=== PATIENT | female | born 1955 | race Caucasian/White ===

== ENCOUNTER 2017-04-06 20:14 | Emergency (ER) | payer MEDICARE, MEDICAID ==
[~2017-04-06] VITALS: Ht 165.1 cm; Wt 107.9 kg
[2017-04-06 20:16] VITALS: BP 145/80; PULSE 90; RESP 16; TEMP 97.8; O2SAT 97
[2017-04-06] MEDS ORDERED: FLUT1SPR5 EACH NARE (20:34)
[2017-04-06] MEDS ORDERED: LOSA50TA PO (20:34)
[2017-04-06] MEDS ORDERED: ALPR.5 PO (20:34)
[2017-04-06] MEDS ORDERED: MERC50TA PO (20:34)
[2017-04-06] MEDS ORDERED: OLAN10TA PO (20:34)
[2017-04-06] MEDS ORDERED: VENL75XR PO (20:34)
[2017-04-06] MEDS ORDERED: APRI0.372 PO (20:34)
[2017-04-06] MEDS ORDERED: UMEC1INH INH (20:34)
[2017-04-06] MEDS ORDERED: FLUT1INH INH (20:34)
[2017-04-06] MEDS ORDERED: MECL-62 PO (20:34)
[2017-04-06] MEDS ORDERED: IBUP-1129 (20:34)
[2017-04-06] MEDS ORDERED: CETI10CA3 (20:34)
[2017-04-06] MEDS ORDERED: OMEP40CA2 PO (20:34)
[2017-04-06] MEDS ORDERED: CALC1TAB87 PO (20:34)
[2017-04-06] MEDS ORDERED: GABA300C5 PO (20:34)
[2017-04-06] MEDS ORDERED: HYDR25TA5 PO (20:34)
[2017-04-06] MEDS ORDERED: BACIOIN6 LEFT EYE (21:25)
--- NOTE | 2017-04-06 21:25 | PD ---
HPI Chief Complaint: Eye Problems/Injury Time Seen by Provider: 21:17 Travel History International Travel<30 days: No Contact w/Intl Traveler<30days: No Traveled to known affect area: No History of Present Illness HPI Patient is a 62-year-old female presenting to the emergency department for evaluation of left eye tearing, crusting, redness. Patient states the symptoms started Wednesday when she felt as if she had an eyelash in her eye. She reports flushing her eye but since that time she has continued to have symptoms. She denies any contact lens use. She denies any visual changes. She states the pain is a 3 out of 10 and reports it is irritated. There are no alleviating factors, it is not exacerbated by anything. Additionally patient states that she's had nasal congestion for several days as well, but denies any fevers, chills, headache, cough.. Patient reports an allergy to erythromycin. PFSH Past Medical History Asthma: Yes Autoimmune Disease: Yes (CHRON'S ) Bipolar Disorder: Yes Anxiety: Yes Depression: Yes GERD: Yes Hypertension: Yes Medical other: Yes (MANIC DEPRESSION ) Tetanus Vaccination: > 5 Years Social History Alcohol Use: Yes (RARELY ) Tobacco Use: Yes Substance Use: No Allergies-Medications (Allergen,Severity, Reaction): Coded Allergies: erythromycin base (Verified Allergy, Severe, 04/06/17) Reported Meds & Prescriptions Reported Meds & Active Scripts Active Reported Motrin Ib (Ibuprofen) 200 Mg Tablet 400 BID Calcium 600 with Vitamin D (Calcium Carbonate-Cholecalciferol) 600-400 mg-Unit Tab 1 Tab PO DAILY Zyrtec (Cetirizine HCl) 10 Mg Capsule Breo Ellipta Inh (Fluticasone/Vilanterol) 100-25 Mcg/Act Inh 1 Puff INH DAILY Use daily at the same time. Incruse Ellipta Inh (Umeclidinium [place] Inh) 0.0625 Mg/Act Inh 62.5 Mcg INH DAILY Flonase Nasal [place] (Fluticasone Nasal [place]) 50 Mcg/Act [place] 50 Mcg EACH NARE BID Losartan (Losartan Potassium) 50 Mg Tab 50 Mg PO DAILY Mercaptopurine 50 Mg Tab 50 Mg PO DAILY Omeprazole 40 Mg Cap 40 Mg PO DAILY Hydrochlorothiazide 25 Mg Tab 25 Mg PO DAILY Gabapentin 300 Mg Cap 300 Mg PO BID Apriso (Mesalamine) 0.375 Gm Caper 1.5 Gm PO DAILY Meclizine (Meclizine HCl) 25 Mg Tab 25 Mg PO DIRECTED PRN Xanax (Alprazolam) 0.5 Mg Tab 0.5 Mg PO BID PRN Olanzapine 10 Mg Tab 10 Mg PO DAILY Effexor XR 24 HR (Venlafaxine HCl) 75 Mg Cap 75 Mg PO DAILY Review of Systems Except as stated in HPI: all other systems reviewed are Neg Eyes: Positive: Drainage, Redness, Tearing, No: Blurred Vision, Foreign Body Sensation, Visual changes Physical Exam Narrative GENERAL: Well-developed, well-nourished, alert female. Resting comfortably in no acute distress. SKIN: Warm and dry. HEAD: Normocephalic. EYES: No scleral icterus. Mild injection to the inner aspect of the left eye with clear drainage. Extraocular movements are intact. Pupils are equal, round , reactive. Fluorescein eye exam was negative for abrasions, lesions, foreign body. NECK: Supple, trachea midline. No JVD or lymphadenopathy. CARDIOVASCULAR: Regular rate and rhythm without murmurs, gallops, or rubs. RESPIRATORY: Breath sounds equal bilaterally. No accessory muscle use. GASTROINTESTINAL: Abdomen soft, non-tender, nondistended. MUSCULOSKELETAL: No cyanosis, or edema. BACK: Nontender without obvious deformity. No CVA tenderness. Data Data Last Documented VS Vital Signs Date Time Temp Pulse Resp B/P (MAP) Pulse Ox O2 Delivery O2 Flow Rate FiO2 04/06/17 20:16 97.8 90 16 145/80 (101) 97 Room Air [facility] Medical Decision Making Medical Screen Exam Complete: Yes Emergency Medical Condition: Yes Interpretation(s) Vital Signs Date Time Temp Pulse Resp B/P (MAP) Pulse Ox O2 Delivery O2 Flow Rate FiO2 04/06/17 20:16 97.8 90 16 145/80 (101) 97 Room Air Differential Diagnosis Conjunctivitis versus foreign body versus corneal abrasion versus other Narrative Course Patient presented with 2 days of left eye tearing, crusting, redness. No foreign body noted on exam, no abrasions or lesions. There is mild induration to the inner aspect. Patient has been having upper respiratory symptoms, this is likely viral in nature however patient will be provided with a prescription for bacitracin ointment to help lubricate the eye. She was encouraged to apply warm compresses. She was encouraged to follow-up with an verify rep as needed or she can return to emergency department for any new or worsening symptoms. Patient verbalized understanding of these instructions. Patient is stable for discharge. Diagnosis Primary Impression: Conjunctivitis Qualified Codes: H10.32 - Unspecified acute conjunctivitis, left eye Referrals: Redrying Machine Operator 3 days Patient Instructions: Conjunctivitis (ED), General Instructions Additional Instructions: Maintain strict hand washing to avoid spread Use medications as directed Follow-up with her verify rep if no improvement You may also return to emergency department for any new or worsening symptoms Med/Other Pt SpecificInfo: Prescription(s) given Scripts Bacitracin Opth Oint (Bacitracin Opth Oint) 500 Unit/Gm Oint 1 APPLIC LEFT EYE Q4HR for Infection for 7 Days, #1 TUBE 0 Refills Prov: Mar Gu 04/06/17 Disposition: 01 DISCHARGE HOME Condition: Stable Mar Gu Apr 06, 2017 21:25
== END 2017-04-06 22:06 | disposition home or self-care (01) ==
LOC: NEPK 20:14
DX: H10.32 Unspecified acute conjunctivitis, left eye (principal); I10 Essential (primary) hypertension; F31.9 Bipolar disorder, unspecified; Z72.0 Tobacco use
CPT/HCPCS: 99283

== ENCOUNTER 2017-04-16 14:34 | Emergency (ER) | payer MEDICARE, MEDICAID ==
[~2017-04-16] VITALS: Ht 165.1 cm; Wt 107.0 kg
[~2017-04-16 14:34] MED LIST: ALPR.5 PO; APRI0.372 PO; BACIOIN6 LEFT EYE; CALC1TAB87 PO; CETI10CA3; FLUT1INH INH; FLUT1SPR5 EACH NARE; GABA300C5 PO; HYDR25TA5 PO; IBUP-1129; LOSA50TA PO; MECL-62 PO; MERC50TA PO; OLAN10TA PO; OMEP40CA2 PO; UMEC1INH INH; VENL75XR PO
[2017-04-16 14:37] VITALS: BP 136/70; PULSE 96; RESP 13; TEMP 98.7; O2SAT 97
[2017-04-16] MEDS ORDERED: IBUP-232 PO (15:28)
--- NOTE | 2017-04-16 15:28 | PD ---
HPI Chief Complaint: Injury Time Seen by Provider: 15:17 Travel History International Travel<30 days: No Contact w/Intl Traveler<30days: No Traveled to known affect area: No History of Present Illness HPI 62-year-old female presents to emergency Department with complaint of right ankle pain and swelling since Wednesday after rolling her ankle while walking down stairs. She denies falling. Pain radiates up her leg. Denies calf pain. Denies paresthesias, loss of sensation, decreased range of motion, decreased strength to the affected extremity. Has been ambulatory on the affected extremity. Been taking ibuprofen for symptom management. Rates pain 01/28. Describes it as a throbbing, aching, stabbing sensation. Pain is to the lateral and medial aspect of the ankle. Pain is aggravated with ambulation, palpation, movement. Allergies to erythromycin base. Has no other medical complaints. No other modifying factors or associated signs and symptoms. PFSH Past Medical History Asthma: Yes Autoimmune Disease: Yes (CHRON'S ) Bipolar Disorder: Yes Anxiety: Yes Depression: Yes Diabetes: Yes GERD: Yes Hypertension: Yes Social History Alcohol Use: Yes (RARELY ) Tobacco Use: Yes Substance Use: No Allergies-Medications (Allergen,Severity, Reaction): Coded Allergies: erythromycin base (Verified Allergy, Severe, 04/16/17) Reported Meds & Prescriptions Reported Meds & Active Scripts Active Ibuprofen 600 Mg Tab 600 Mg PO Q6H PRN Bacitracin Opth Oint 500 Unit/Gm Oint 1 Applic LEFT EYE Q4HR 7 Days Reported Motrin Ib (Ibuprofen) 200 Mg Tablet 400 BID Calcium 600 with Vitamin D (Calcium Carbonate-Cholecalciferol) 600-400 mg-Unit Tab 1 Tab PO DAILY Zyrtec (Cetirizine HCl) 10 Mg Capsule Breo Ellipta Inh (Fluticasone/Vilanterol) 100-25 Mcg/Act Inh 1 Puff INH DAILY Use daily at the same time. Incruse Ellipta Inh (Umeclidinium [place] Inh) 0.0625 Mg/Act Inh 62.5 Mcg INH DAILY Flonase Nasal [place] (Fluticasone Nasal [place]) 50 Mcg/Act [place] 50 Mcg EACH NARE BID Losartan (Losartan Potassium) 50 Mg Tab 50 Mg PO DAILY Mercaptopurine 50 Mg Tab 50 Mg PO DAILY Omeprazole 40 Mg Cap 40 Mg PO DAILY Hydrochlorothiazide 25 Mg Tab 25 Mg PO DAILY Gabapentin 300 Mg Cap 300 Mg PO BID Apriso (Mesalamine) 0.375 Gm Caper 1.5 Gm PO DAILY Meclizine (Meclizine HCl) 25 Mg Tab 25 Mg PO DIRECTED PRN Xanax (Alprazolam) 0.5 Mg Tab 0.5 Mg PO BID PRN Olanzapine 10 Mg Tab 10 Mg PO DAILY Effexor XR 24 HR (Venlafaxine HCl) 75 Mg Cap 75 Mg PO DAILY Review of Systems Except as stated in HPI: all other systems reviewed are Neg Physical Exam Narrative GENERAL: Well-nourished, well-developed female patient, in no acute distress SKIN: Warm and dry. HEAD: Atraumatic. Normocephalic. EYES: Pupils equal and round. No scleral icterus. No injection or drainage. ENT: Mucosa pink and moist. Airway patent. NECK: Trachea midline. CARDIOVASCULAR: Regular rate. RESPIRATORY: No accessory muscle use. GASTROINTESTINAL: Obese MUSCULOSKELETAL: Right ankle with point tenderness to the lateral and medial malleolar zone with palpation; mildly edematous without erythema or ecchymosis; no obvious deformity. Right Lower extremity is supple and nontense with 2+ pedal pulse and sensory intact. No obvious deformities. No clubbing. No cyanosis. NEUROLOGICAL: Awake and alert. Oriented 3. No obvious cranial nerve deficits. Motor grossly within normal limits. Normal speech. PSYCHIATRIC: Appropriate mood and affect; insight and judgment normal. Data Data Last Documented VS Vital Signs Date Time Temp Pulse Resp B/P (MAP) Pulse Ox O2 Delivery O2 Flow Rate FiO2 04/16/17 14:37 98.7 96 13 136/70 (92) 97 Orders Orders Ankle, Complete ([id number]) (04/16/17 15:22) Ibuprofen (Motrin) (04/16/17 15:30) [facility] Medical Decision Making Medical Screen Exam Complete: Yes Emergency Medical Condition: Yes Medical Record Reviewed: Yes Differential Diagnosis Ankle sprain, ankle fracture, ankle dislocation Narrative Course 62-year-old female with right ankle injury. Ibuprofen administered in the ER. Right ankle x-ray ordered. 1600: Right ankle x-ray with no acute findings. Melvin bandage and ankle stirrup splint provider for support. Crutches provided for support. Ibuprofen prescribed for home. Instructed patient to follow up with primary care provider. Patient verbalizes understanding and agreement with treatment plan. Patient is medically cleared and stable for discharge. Discussed reasons to return to the emergency department. Patient agrees with treatment plan. The patients vital signs are stable and the patient is stable for outpatient follow- up and treatment. Patient discharged home, stable and in no acute distress. Diagnosis Primary Impression: Right ankle sprain Qualified Codes: S93.401A - Sprain of unspecified ligament of right ankle, initial encounter Referrals: Orthopedist Primary Care Physician Patient Instructions: Ankle Sprain (ED), Crutch Instructions (ED), General Instructions Additional Instructions: Tylenol or ibuprofen as directed and as needed for pain and inflammation Rest, ice, compress, and elevate extremity to decrease pain and inflammation Ankle Brace for support Crutches, cane, or walker for support Avoid aggravating activity; increase activity as tolerated Follow-up with primary care provider Return to the emergency department immediately with worsening of symptoms Med/Other Pt SpecificInfo: Prescription(s) given Scripts Ibuprofen (Ibuprofen) 600 Mg Tab 600 MG PO Q6H Y for PAIN, #20 TAB 0 Refills Prov: Shira Bran 04/16/17 Disposition: 01 DISCHARGE HOME Condition: Stable Shira Bran Apr 16, 2017 15:28
[2017-04-16] MEDS ORDERED: IBUPROFEN 800 MG TAB PO ONE (15:30)
--- NOTE | 2017-04-16 15:55 | RADRPT ---
EXAM DATE/TIME: 04/16/2017 15:32 [facility] COMPARISON: No previous studies available for comparison. INDICATIONS : Right ankle pain, twisted ankle. MEDICAL HISTORY : None. SURGICAL HISTORY : None. ENCOUNTER: Initial ACUITY: 1 day PAIN SCORE: 8/10 LOCATION: Right lateral ankle FINDINGS: Three view exam was performed of the right ankle. The bony structures are in normal alignment. No e vidence of fracture, dislocation, or soft tissue swelling. The ankle mortise is intact. No radiopaq ue foreign bodies are seen. Bony mineralization is normal. CONCLUSION: No acute disease. Andrew Colunga Jr., MD on April 16, 2017 at 15:53 Board Certified Radiologist. This report was verified electronically.
== END 2017-04-16 16:32 | disposition home or self-care (01) ==
LOC: NEPK 14:34
DX: S93.401A Sprain of unspecified ligament of right ankle, initial encounter (principal); J45.909 Unspecified asthma, uncomplicated; K50.90 Crohn's disease, unspecified, without complications; F31.9 Bipolar disorder, unspecified; F41.9 Anxiety disorder, unspecified; E11.9 Type 2 diabetes mellitus without complications; I10 Essential (primary) hypertension; W10.9XXA Fall (on) (from) unspecified stairs and steps, initial encounter; X50.1XXA Overexertion from prolonged static or awkward postures, initial encounter
CPT/HCPCS: 73610; 99283; E0113; L1906

== ENCOUNTER 2017-06-19 15:30 | Emergency (ER) | payer MEDICAID, MEDICARE ==
[~2017-06-19] VITALS: Ht 165.1 cm; Wt 107.4 kg
[~2017-06-19 15:30] MED LIST changes: +IBUP-232 PO
[2017-06-19 15:32] VITALS: BP 164/79; PULSE 95; RESP 19; TEMP 98.2; O2SAT 95
[2017-06-19] MEDS ORDERED: OLAN15TA PO (16:12)
[2017-06-19] MEDS ORDERED: GABA300C5 PO (16:12)
[2017-06-19] MEDS ORDERED: BUSP15TA PO (16:12)
[2017-06-19] MEDS ORDERED: predniSONE 20 MG TAB PO ONE (16:30)
[2017-06-19] MEDS ORDERED: LEVOFLOXACIN 500 MG TAB PO ONE (16:30)
[2017-06-19] MEDS: RESP: ALBUTEROL 2.5 MG/IPRATROPIUM 0.5 MG NEB (SCH) INH (16:49)
[2017-06-19] MEDS ORDERED: BACT800T5 PO (16:53)
[2017-06-19] MEDS ORDERED: PRED20 PO (16:53)
[2017-06-19] MEDS ORDERED: ALBU0.08 NEB (16:53)
--- NOTE | 2017-06-19 17:02 | PD ---
HPI Chief Complaint: Cold / Flu Symptoms Time Seen by Provider: 15:57 Travel History International Travel<30 days: No Contact w/Intl Traveler<30days: No Traveled to known affect area: No History of Present Illness HPI 62-year-old female presents in her Department with worsening cough and congestion over the past week. Patient continues to smoke approximate half pack cigarettes per day. She does have a nebulizer at home but no albuterol, except for her metered-dose inhaler which she has been using with little effect in the last 2 days. States her cough is productive of green sputum. She does however denied pleuritic pain or fever or chills. She states no nausea or vomiting or heartburn. Patient denies significant sinus pain but does have sinus congestion. She has no throat pain or difficulty swallowing. Patient states she's had trouble sleeping secondary to her cough. Patient is allergic to erythromycin. PFSH Past Medical History Asthma: Yes Autoimmune Disease: Yes (CROHN'S DISEASE ) Bipolar Disorder: Yes Anxiety: Yes Depression: Yes Diabetes: Yes Patient Takes Glucophage: Yes (not taken for 3 months) Diminished Hearing: No GERD: Yes Hypertension: Yes Respiratory: Yes Immunizations Current: No Menopausal: Yes Social History Alcohol Use: Yes (RARELY ) Tobacco Use: Yes (1 ppd) Substance Use: No Allergies-Medications (Allergen,Severity, Reaction): Coded Allergies: erythromycin base (Verified Allergy, Severe, 04/16/17) Reported Meds & Prescriptions Reported Meds & Active Scripts Active Albuterol Neb (Albuterol Sulfate) 2.5 Mg/3 Ml Neb 2.5 Mg NEB QID NEB Prednisone 20 Mg Tab 20 Mg PO BID 5 Days Bactrim DS (Sulfamethoxazole-Trimethoprim) 800-160 Mg Tab 1 Tab PO BID Reported Olanzapine 15 Mg Tab 15 Mg PO HS Gabapentin 300 Mg Cap 300 Mg PO TID Buspirone (Buspirone HCl) 15 Mg Tab 15 Mg PO TID Motrin Ib (Ibuprofen) 200 Mg Tablet 400 BID Calcium 600 with Vitamin D (Calcium Carbonate-Cholecalciferol) 600-400 mg-Unit Tab 1 Tab PO DAILY Zyrtec (Cetirizine HCl) 10 Mg Capsule Flonase Nasal [place] (Fluticasone Nasal [place]) 50 Mcg/Act [place] 50 Mcg EACH NARE BID Omeprazole 40 Mg Cap 40 Mg PO DAILY Hydrochlorothiazide 25 Mg Tab 25 Mg PO DAILY Apriso (Mesalamine) 0.375 Gm Caper 1.5 Gm PO DAILY Meclizine (Meclizine HCl) 25 Mg Tab 25 Mg PO DIRECTED PRN Effexor XR 24 HR (Venlafaxine HCl) 75 Mg Cap 75 Mg PO DAILY Review of Systems Except as stated in HPI: all other systems reviewed are Neg General / Constitutional: No: Fever, Chills Eyes: No: Visual changes HENT: Positive: Headaches, Rhinitis, Rhinorrhea, Congestion, Neck Stiffness, No : Vertigo, Lightheadedness, Sore Throat, Nosebleed, Neck Pain, Gingival Bleeding , Dental Difficulties (from cough.), Ear Discharge, Earache Cardiovascular: No: Chest Pain or Discomfort Respiratory: Positive: Cough, Shortness of Breath, Wheezing, No: Sneezing, Orthopnea, Hemoptysis, Stridor, Night Sweats, Pleuritic Pain Gastrointestinal: No: Nausea, Vomiting, Diarrhea, Abdominal Pain Genitourinary: No: Dysuria Musculoskeletal: No: Pain Skin: No Rash Neurologic: No: Weakness Psychiatric: No: Depression Endocrine: No: Polydipsia Hematologic/Lymphatic: No: Easy Bruising Physical Exam Narrative GENERAL: Patient appears in mild distress. SKIN: Warm and dry. Normal color. Normal turgor. No rash. HEAD: Atraumatic. Normocephalic. EYES: Pupils equal and round. No scleral icterus. No injection or drainage. ENT: No nasal bleeding or discharge. Mucous membranes pink and moist. Posterior pharynx is unremarkable. Somewhat dull bilaterally without significant injection. NECK: Trachea midline. Supple with mild soft tissue tenderness, without significant lymphadenopathy. CARDIOVASCULAR: Regular rate and rhythm. RESPIRATORY: No accessory muscle use. Diffuse wheezes and rales throughout to auscultation. No rhonchi. Breath sounds equal bilaterally. GASTROINTESTINAL: Abdomen soft, non-tender, nondistended. Hepatic and splenic margins not palpable. MUSCULOSKELETAL: Extremities without clubbing, cyanosis, or edema. No obvious deformities. NEUROLOGICAL: Awake and alert. No obvious cranial nerve deficits. Motor grossly within normal limits. Five out of 5 muscle strength in the arms and legs. Normal speech. PSYCHIATRIC: Appropriate mood and affect; insight and judgment normal. Data Data Last Documented VS Vital Signs Date Time Temp Pulse Resp B/P (MAP) Pulse Ox O2 Delivery O2 Flow Rate FiO2 06/19/17 15:59 18 06/19/17 15:32 98.2 95 164/79 (107) 95 Orders Orders Albuterol-Ipratropium Neb (Duoneb Neb) (06/19/17 16:30) Prednisone (Deltasone) (06/19/17 16:30) Levofloxacin (Levaquin) (06/19/17 16:30) MDM Medical Decision Making Medical Screen Exam Complete: Yes Emergency Medical Condition: Yes Medical Record Reviewed: Yes Differential Diagnosis Wheezing. COPD with acute exacerbation. Bronchitis. Narrative Course Patient is given DuoNeb x3. Patient is given 40 mg prednisone by mouth. She is given 1 dose of Levaquin 500 mg by mouth. Patient will be continued on prednisone 20 mg twice a day 5 days. Will be continued on Bactrim DS twice a day 10 days. Patient is given albuterol unit dose while for her nebulizer she can use every 4 hours as needed. Strongly suggest the patient quit smoking immediately. Patient should follow with her primary care physician as scheduled next week or return to emergency department as needed for worsening symptoms. Diagnosis Primary Impression: COPD exacerbation Additional Impression: Acute wheezy bronchitis Referrals: Primary Care Physician Patient Instructions: COPD (Chronic Obstructive Pulmonary Disease) (ED), General Instructions Additional Instructions: Patient is given DuoNeb x3. Patient is given 40 mg prednisone by mouth. She is given 1 dose of Levaquin 500 mg by mouth. Patient will be continued on prednisone 20 mg twice a day 5 days. Will be continued on Bactrim DS twice a day 10 days. Patient is given albuterol unit dose while for her nebulizer she can use every 4 hours as needed. Strongly suggest the patient quit smoking immediately. Patient should follow with her primary care physician as scheduled next week or return to emergency department as needed for worsening symptoms. Med/Other Pt SpecificInfo: Prescription(s) given Scripts Albuterol Neb (Albuterol Neb) 2.5 Mg/3 Ml Neb 2.5 MG NEB QID NEB for Breathing Treatment, #120 [place] 0 Refills Prov: Mann Ivey MD 06/19/17 Prednisone (Prednisone) 20 Mg Tab 20 MG PO BID for 5 Days, #10 TAB 0 Refills Prov: Mann Ivey MD 06/19/17 Sulfamethoxazole-Trimethoprim (Bactrim DS) 800-160 Mg Tab 1 TAB PO BID for Infection, #20 TAB 0 Refills Prov: Mann Ivey MD 06/19/17 Disposition: 01 DISCHARGE HOME Condition: Stable Amador Salazar Jun 19, 2017 17:02
== END 2017-06-19 17:26 | disposition home or self-care (01) ==
LOC: NEPD 15:30
DX: J44.1 Chronic obstructive pulmonary disease with (acute) exacerbation (principal); J44.0 Chronic obstructive pulmonary disease with (acute) lower respiratory infection; J20.9 Acute bronchitis, unspecified; I10 Essential (primary) hypertension; K21.9 Gastro-esophageal reflux disease without esophagitis; F31.9 Bipolar disorder, unspecified; F17.210 Nicotine dependence, cigarettes, uncomplicated
CPT/HCPCS: 94640; 94664; 99284; J7512

== ENCOUNTER 2017-07-26 17:23 | Emergency (ER) | payer OTHER ==
[~2017-07-26 17:23] MED LIST changes: +ALBU0.08 NEB; -ALPR.5 PO; -BACIOIN6 LEFT EYE; +BUSP15TA PO; +Budeson-Formot 160-4.5 Mcg Inh INH; +CEFU1TAB20 PO; -CETI10CA3; -FLUT1INH INH; -FLUT1SPR5 EACH NARE; -HYDR25TA5 PO; -IBUP-1129; -IBUP-232 PO; +LISI20TA PO; -LOSA50TA PO; -MERC50TA PO; +METF1000 PO; -OLAN10TA PO; +OLAN15TA PO; +PRED20 PO; -UMEC1INH INH; +VENTAER INH
[2017-07-26 17:26] VITALS: BP 126/59; PULSE 94; RESP 17; TEMP 98.1; O2SAT 98
--- NOTE | 2017-07-26 18:45 | RADRPT ---
EXAM DATE/TIME: 07/26/2017 18:25 [facility] COMPARISON: CHEST PA & LAT, July 09, 2017, 19:03. INDICATIONS : Cough and shortness of breath. MEDICAL HISTORY : Chronic obstructive pulmonary disease. Diabetes mellitus type II.Hypertension. Asthma. SURGICAL HISTORY : None. ENCOUNTER: [facility] ACUITY: 3 weeks PAIN SCORE: 0/10 LOCATION: Bilateral chest FINDINGS: PA and lateral views of the chest demonstrates hyperaeration bilaterally with chronic appearing inter stitial changes bilaterally. There is stable linear infiltrate versus scarring in the right lung base . No definite new or acute pulmonary infiltrates are demonstrated. The heart size is stable. There no pleural effusions. The bony structures are stable.. CONCLUSION: 1. Stable linear infiltrate versus scarring in the right lung base. 2. Stable chronic interstitial changes bilaterally. 3. No significant change compared to the prior study. Bakari Marcelino MD on July 26, 2017 at 18:42 Board Certified Radiologist. This report was verified electronically.
[2017-07-26 19:01] LABS: BASOPHIL % 0.2 % (0.0-2.0); EOSINOPHIL % 0.1 % (0.0-4.0); HEMATOCRIT 38.1 % (35.0-46.0); HEMOGLOBIN 13.3 GM/DL (11.6-15.3); LYMPH % 32.5 % (9.0-44.0); LYMPHOCYTE # 2.6 TH/MM3 (1.0-4.8); MEAN CELL VOLUME 96.5 FL (80.0-100.0); MEAN CORPUSCULAR HEMOGLOBIN 33.7 PG (27.0-34.0); MEAN CORPUSCULAR HGB CONC 34.9 % (32.0-36.0); MEAN PLATELET VOLUME 7.6 FL (7.0-11.0); MONO % 5.8 % (0.0-8.0); MONOCYTE # 0.5 TH/MM3 (0-0.9); NEUT % 61.4 % (16.0-70.0); PLATELET COUNT 247 TH/MM3 (150-450); RED BLOOD COUNT 3.95 MIL/MM3 (4.00-5.30); RED CELL DISTRIBUTION WIDTH 14.2 % (11.6-17.2); WHITE BLOOD COUNT 8.1 TH/MM3 (4.0-11.0)
[2017-07-26 19:12] LABS: BICARBONATE 30.1 MEQ/L (21.0-32.0); CALCIUM 9.6 MG/DL (8.5-10.1); CREATININE 1.62 MG/DL (0.50-1.00)
[2017-07-26 20:06] VITALS: BP 121/64; PULSE 82; RESP 16; O2SAT 95
--- NOTE | 2017-07-26 20:22 | PD ---
HPI Chief Complaint: Respiratory Symptoms Time Seen by Provider: 20:19 Travel History International Travel<30 days: No Contact w/Intl Traveler<30days: No Traveled to known affect area: No History of Present Illness HPI The patient is a 62 year old female who presents to the [facility] emergency department with a history of continuing to not feel well since she was admitted to the hospital related to pneumonia from July 10 - July 12. She reports that when she was discharged home was given a course of antibiotic. She completed the course of Ceftin as well as prednisone. Her main concern at this point is continued cough and upper back pain. She reports that along the back below the shoulder blades bilaterally she has a pain that goes straight across her back. She reports that it is made worse with standing and better with lying down. She reports that it became severe while at work today, therefore she decided to come to the emergency department for evaluation and treatment. She reports that due to her renal insufficiency during hospitalization her ibuprofen was discontinued. She reports that she has been taking Tylenol for her back pain. She denies being on any other pain medications. She reports that she has had a subjective fever for the last 2 days. She reports that her cough is intermittently productive of white sputum. On review of systems otherwise, the patient denies having any neck pain, chest pain, abdominal pain, vomiting, diarrhea, urinary symptoms, or neurologic symptoms. The patient reports having continued dyspnea on exertion. The patient reports that she continues to smoke 1 pack of cigarettes per day. She denies any prior history of myocardial infarction, congestive heart failure, DVT , or PE. [facility] Past Medical History Narrative Medical The patient's past medical history is significant for anxiety and depression, bipolar disorder, history of Crohn's disease, hypertension, COPD, diabetes mellitus, tobacco abuse, chronic low back pain Asthma: Yes Autoimmune Disease: Yes (CROHN'S DISEASE ) Blood Disorders: No Bipolar Disorder: Yes Anxiety: No Depression: Yes Heart Rhythm Problems: No Cancer: No Cardiovascular Problems: Yes High Cholesterol: No Chemotherapy: No Chest Pain: No Congestive Heart Failure: No COPD: Yes Diabetes: Yes Patient Takes Glucophage: Yes Diminished Hearing: No Endocrine: No GERD: Yes Genitourinary: No Hypertension: Yes Immune Disorder: No Implanted Vascular Access Dvce: Yes Musculoskeletal: Yes (R/ SHOULDER REPLACEMENT 2003) Neurologic: No Psychiatric: Yes (BIPOLAR DISORDER) Reproductive: No Respiratory: Yes Immunizations Current: No Radiation Therapy: No Sleep Apnea: No Thyroid Disease: No Tetanus Vaccination: Unknown Influenza Vaccination: Yes Menopausal: Yes Past Surgical History Narrative Surgical The patient's past surgical history is significant for a right shoulder surgery , lumbar discectomy. Body Medical Devices: R/ SHOULDER REPLACEMENT Other Surgery: Yes Social History Alcohol Use: No Tobacco Use: Yes (1 pack per day) Substance Use: No Allergies-Medications (Allergen,Severity, Reaction): Coded Allergies: erythromycin base (Verified Allergy, Severe, 04/16/17) Reported Meds & Prescriptions Reported Meds & Active Scripts Active Medrol Dosepak (Methylprednisolone) 4 Mg Dspk 4 Mg PO DIRECTED Per Pharmacist direction Flexeril (Cyclobenzaprine HCl) 5 Mg Tab 5 Mg PO TID PRN Metformin (Metformin HCl) 1,000 Mg Tab 1,000 Mg PO BIDPC Ventolin Hfa 18 GM Inh (Albuterol Sulfate) 90 Mcg/Act Aer 2 Puff INH Q4H PRN [Budeson-Formot 160-4.5 Mcg Inh] 60 PUFF Aero 2 Puff INH Q12HR Albuterol Neb (Albuterol Sulfate) 2.5 Mg/3 Ml Neb 2.5 Mg NEB QID NEB Reported Lisinopril-Hctz 20-12.5 Mg Tab 1 Tab PO DAILY Gabapentin 300 Mg Cap 300 Mg PO TID Buspirone (Buspirone HCl) 15 Mg Tab 15 Mg PO TID Calcium 600 with Vitamin D (Calcium Carbonate-Cholecalciferol) 600-400 mg-Unit Tab 1 Tab PO DAILY Omeprazole 40 Mg Cap 40 Mg PO DAILY Apriso (Mesalamine) 0.375 Gm Caper 1.5 Gm PO DAILY Meclizine (Meclizine HCl) 25 Mg Tab 25 Mg PO DIRECTED PRN Effexor XR 24 HR (Venlafaxine HCl) 75 Mg Cap 75 Mg PO DAILY Review of Systems Except as stated in HPI: all other systems reviewed are Neg General / Constitutional: No: Fever Eyes: No: Visual changes HENT: Positive: Congestion, No: Headaches Cardiovascular: Positive: Dyspnea on exertion, No: Chest Pain or Discomfort Respiratory: Positive: Cough, Shortness of Breath, Wheezing Gastrointestinal: No: Nausea, Vomiting, Diarrhea, Abdominal Pain Genitourinary: No: Urgency, Frequency, Dysuria, Flank Pain Musculoskeletal: No: Pain Skin: No Rash Neurologic: No: Weakness, Focal Abnormalities, Change in Mentation, Slurred Speech, Sensory Disturbance Psychiatric: No: Depression Endocrine: No: Polydipsia Hematologic/Lymphatic: No: Easy Bruising Physical Exam Narrative General: The patient is a well-developed well-nourished female in no acute distress. Head and Neck exam: Head is normocephalic atraumatic. Eyes: EOMI, pupils are equal round and reactive to light. Nose: Midline septum with pink mucous membranes Mouth: Dentition unremarkable. Moist mucus membranes. Posterior oropharynx is not erythematous. No tonsillar hypertrophy. Uvula midline. Airway patent. Neck: No palpable lymphadenopathy. No nuchal rigidity. No thyromegaly. Cardiovascular: Regular rate and rhythm without murmurs, gallops, or rubs. Lungs: Soft expiratory wheezes audible throughout bilateral lung dey. No rhonchi, no crackles. No accessory muscle use. No paroxysmal abdominal breathing. No tripoding. Abdomen: Soft, without tenderness to palpation in all 4 quadrants of the abdomen. No guarding, rebound, or rigidity. Normal bowel sounds are audible. No tenderness on palpation of McBurney's point. Extremities: No c clubbing or cyanosis. The patient has trace pedal edema bilateral lower extremities. She denies having any change in her lower extremity edema. 2+ pulses in all 4 extremities. She denies having any calf pain or erythema. Negative Homans sign. No palpable cords. Back: No spinous process tenderness to palpation. No costovertebral angle tenderness to palpation. Neurologic Exam: Grossly nonfocal. Skin Exam: No rash noted. Intact skin that is warm and dry. Data Data Last Documented VS Vital Signs Date Time Temp Pulse Resp B/P (MAP) Pulse Ox O2 Delivery O2 Flow Rate FiO2 07/26/17 21:19 96 21 07/26/17 21:11 16 07/26/17 20:06 82 Room Air 07/26/17 17:26 98.1 Orders Orders Chest, Pa & Lat (07/26/17 ) Complete Blood Count With Diff (07/26/17 17:55) Basic Metabolic Panel (Bmp) (07/26/17 17:55) B-Type Natriuretic Peptide (07/26/17 20:22) Influenzae A/B Antigen (07/26/17 20:22) Electrocardiogram (07/26/17 20:36) Iv Access Insert/Monitor (07/26/17 20:36) Ecg Monitoring (07/26/17 20:36) Oximetry (07/26/17 20:36) Albuterol-Ipratropium Neb (Duoneb Neb) (07/26/17 21:00) Cyclobenzaprine (Flexeril) (07/26/17 21:00) Ed Discharge Order (07/26/17 22:01) Labs Laboratory Tests Test 07/26/17 18:15 07/26/17 20:50 White Blood Count 8.1 TH/MM3 Red Blood Count 3.95 MIL/MM3 Hemoglobin 13.3 GM/DL Hematocrit 38.1 % Mean Corpuscular Volume 96.5 FL Mean Corpuscular Hemoglobin 33.7 PG Mean Corpuscular Hemoglobin Concent 34.9 % Red Cell Distribution Width 14.2 % Platelet Count 247 TH/MM3 Mean Platelet Volume 7.6 FL Neutrophils (%) (Auto) 61.4 % Lymphocytes (%) (Auto) 32.5 % Monocytes (%) (Auto) 5.8 % Eosinophils (%) (Auto) 0.1 % Basophils (%) (Auto) 0.2 % Neutrophils # (Auto) 5.0 TH/MM3 Lymphocytes # (Auto) 2.6 TH/MM3 Monocytes # (Auto) 0.5 TH/MM3 Eosinophils # (Auto) 0.0 TH/MM3 Basophils # (Auto) 0.0 TH/MM3 CBC Comment DIFF FINAL Differential Comment Blood Urea Nitrogen 14 MG/DL Creatinine 1.62 MG/DL Random Glucose 176 MG/DL Calcium Level 9.6 MG/DL Sodium Level 138 MEQ/L Potassium Level 3.8 MEQ/L Chloride Level 102 MEQ/L Carbon Dioxide Level 30.1 MEQ/L Anion Gap 6 MEQ/L Estimat Glomerular Filtration Rate 32 ML/MIN B-Type Natriuretic Peptide 9 PG/ML MDM Medical Decision Making Medical Screen Exam Complete: Yes Emergency Medical Condition: Yes Medical Record Reviewed: Yes Interpretation(s) Last Impressions Chest X-Ray 07/26/17 0000 Signed Impressions: Service Date/Time: Wednesday, July 26, 2017 18:25 - CONCLUSION: 1. Stable linear infiltrate versus scarring in the right lung base. 2. Stable chronic interstitial changes bilaterally. 3. No significant change compared to the prior study. Bakari Marcelino MD Differential Diagnosis Influenza, versus pneumonia, versus COPD exacerbation, versus musculoskeletal strain, versus dissection Narrative Course During the course of the During the course of the patient's emergency department visit, the patient's history, examination, and differential diagnosis were reviewed with the patient. The patient was placed on a carburetor expert with oximetry and frequent blood pressure monitoring. The patient had IV access obtained and blood work sent for analysis. An EKG is ordered. The patient had an EKG that shows a sinus rhythm heart rate of 74, QRS duration is 82 ms, QTC 410 ms, no acute ST segment changes are noted. The patient was initially provided a DuoNeb 1, Flexeril p.o. 1. The patient's laboratory studies were reviewed and remarkable for a white count of 8.1, hemoglobin 13.3, platelets 247 with a normal differential, basic metabolic profile is remarkable for creatinine 1.62 which is improved compared to previously, glucose 176, BNP is within normal limits ruling out congestive heart failure. Influenza testing is negative. Radiology studies were reviewed and remarkable for a chest x-ray that shows stable linear infiltrate versus scarring in the right lung base, for review in the electronic medical record the patient had a CT scan of the chest done on July 10 that did reveal scarring and thickening of the right mid lung. I suspect that the patient's continued shortness of breath is related to COPD and continued smoking. I encouraged the patient to quit smoking. The patient was on a short course of prednisone at discharge. The patient will be placed on a longer taper. The patient was given a prescription for a Medrol Dosepak taper. The patient will also be discharged home with a prescription for Flexeril for musculoskeletal strain in her back. The patient is resting comfortably and feels better, is alert and in no distress. The patient's results and examination findings were discussed with the patient. The repeat examination is unremarkable and benign. The history, exam, diagnostic testing, and current condition do not suggest any significant pathology to warrant further testing, continued ED treatment, admission, or surgical evaluation at this point. The vital signs have been stable. The patient does not have uncontrollable pain, intractable vomiting, or other significant symptoms. The patient's condition is stable and appropriate for discharge. The patient will pursue further outpatient evaluation with a primary care physician or other designated or consulting physician as indicated in the discharge instructions. The patient expressed understanding and was agreeable with this plan. Diagnosis Primary Impression: COPD (chronic obstructive pulmonary disease) Qualified Codes: J41.0 - Simple chronic bronchitis Additional Impression: Muscle strain Referrals: Primary Care Physician 2 days Patient Instructions: COPD (Chronic Obstructive Pulmonary Disease) (ED), General Instructions, Muscle Strain (ED) Med/Other Pt SpecificInfo: Prescription(s) given Scripts Methylprednisolone Dosepak (Medrol Dosepak) 4 Mg Dspk 4 MG PO DIRECTED, #1 DSPK 0 Refills Per Pharmacist direction Prov: Kelli Riggins MD 07/26/17 Cyclobenzaprine (Flexeril) 5 Mg Tab 5 MG PO TID Y for SPASM, #15 TAB 0 Refills Prov: Kelli Riggins MD 07/26/17 Disposition: 01 DISCHARGE HOME Condition: Stable Kelli Riggins MD Jul 26, 2017 20:22
[2017-07-26] MEDS ORDERED: CYCL5TAB PO (20:47)
[2017-07-26] MEDS ORDERED: RESP: ALBUTEROL 2.5 MG/IPRATROPIUM 0.5 MG NEB (SCH) NEB ONE (21:00)
[2017-07-26] MEDS ORDERED: CYCLOBENZAPRINE HCL 10 MG TAB PO ONE (21:00)
[2017-07-26 21:11] VITALS: RESP 16; O2SAT 95
[2017-07-26 21:19] VITALS: O2SAT 96
[2017-07-26] MEDS ORDERED: MEDR4PAK PO (22:00)
--- NOTE | 2017-07-27 16:05 | EKG ---
Date Performed: 07/26/2017 Time Performed: 20:45:29 PTAGE: 62 years EKG: Sinus rhythm NONSPECIFIC T-WAVE ABNORMALITY BORDERLINE ECG Since the prior tracing, there has been no significant change NO PREVIOUS TRACING DOCTOR: Maurice Enriquez Interpretating Date/Time 07/27/2017 16:04:08
== END 2017-07-26 22:23 | disposition home or self-care (01) ==
LOC: NEPE 17:23
DX: J44.9 Chronic obstructive pulmonary disease, unspecified (principal); E11.9 Type 2 diabetes mellitus without complications; I10 Essential (primary) hypertension; K21.9 Gastro-esophageal reflux disease without esophagitis; F31.9 Bipolar disorder, unspecified; F17.210 Nicotine dependence, cigarettes, uncomplicated; R06.02 Shortness of breath; Z79.84 Long term (current) use of oral hypoglycemic drugs
CPT/HCPCS: 71046; 80048; 83880; 85025; 87804; 93005; 94664

== ENCOUNTER → 2017-08-18 | Outpatient (CLI) | payer OTHER ==
[~2017-08-18] MED LIST changes: -CEFU1TAB20 PO; +CYCL5TAB PO; +MEDR4PAK PO; -OLAN15TA PO; -PRED20 PO
--- NOTE | 2017-08-18 13:01 | RADRPT ---
EXAM DATE/TIME: 08/18/2017 12:25 [facility] COMPARISON: No previous studies available for comparison. INDICATIONS : Mid to low back pain, no known injury. MEDICAL HISTORY : Chronic obstructive pulmonary disease. Diabetes mellitus type 2. Asthma SURGICAL HISTORY : Discectomy, lumbar. ENCOUNTER: Initial ACUITY: 3 weeks PAIN SCORE: 2/10 LOCATION: middle back FINDINGS: Severe degenerative disc disease is present throughout the lumbar spine. There is marked disc space n arrowing, endplate sclerosis and marginal spondylosis at L2-3, L3-4, L4-5 and L5-S1. Partial laminectomy defect is identified at L3 and a narrow laminectomy defect at L4. A grade 1-2 anterolisthesis is identified at the L4-5 level. There is advanced facet arthropathy at L 4-5 and L5-S1 which accounts for the listhesis. There are no destructive changes. There is no evidence of acute fracture. CONCLUSION: 1. Severe degenerative disc disease. 2. Laminectomy defects at L3 and L4 3. Grade 2 degenerative anterolisthesis at L4-5 secondary to facet arthropathy. 4. No acute fracture or destructive lesions. Myron Ocasio MD on August 18, 2017 at 12:55 Board Certified Radiologist. This report was verified electronically.
--- NOTE | 2017-08-18 13:01 | RADRPT ---
EXAM DATE/TIME: 08/18/2017 12:25 [facility] COMPARISON: No previous studies available for comparison. INDICATIONS : Mid- upper back pain, no known injury. MEDICAL HISTORY : Chronic obstructive pulmonary disease. Diabetes mellitus type 2, Asthma SURGICAL HISTORY : Discectomy, lumbar. ENCOUNTER: Initial ACUITY: 3 weeks PAIN SCORE: 2/10 LOCATION: middle upper back FINDINGS: There is normal alignment of the thoracic vertebral bodies. Vertebral body height is maintained. No evidence of fracture or subluxation. Pedicles are intact at all levels. The paravertebral reflecti ons are not thickened. CONCLUSION: No acute disease. Myron Ocasio MD on August 18, 2017 at 12:59 Board Certified Radiologist. This report was verified electronically.
== END ==
LOC: HRAD 12:07
PROVIDERS: ATTEND Family Medicine
DX: G89.29 Other chronic pain (principal)
CPT/HCPCS: 72072; 72100

== ENCOUNTER 2017-09-10 12:32 | Emergency (ER) | payer OTHER ==
[~2017-09-10] VITALS: Ht 165.1 cm; Wt 93.0 kg
[2017-09-10 12:35] VITALS: BP 139/66; PULSE 101; RESP 18; TEMP 97.7; O2SAT 96
--- NOTE | 2017-09-10 16:29 | PD ---
HPI Chief Complaint: Pain: Acute or Chronic Time Seen by Provider: 16:20 Travel History International Travel<30 days: No Contact w/Intl Traveler<30days: No Traveled to known affect area: No History of Present Illness HPI Patient is a 62-year-old female presents emergency department for evaluation of chronic low back pain. Patient states she has a history of degenerative disc disease in her low back and recently moved to the area. She states that it started moving up in the thoracic spine about a month ago when she had x-rays of the spine per her primary care physician. She states the pain is still been constant and intermittent has been severe. She does not have any pain medicine to take at home so decided to come here to be seen. Patient states he did not have a ride here and did not know how the buses work so she decided to take an ambulance. She states there is no difference from her pain today as from yesterday. States he gets worse when she takes a deep breath or when she is walking at work. She denies any chest pain shortness of breath abdominal pain nausea or vomiting. Denies any saddle anesthesia or problems urinating. No history of trauma peer PFS Past Medical History Asthma: Yes Autoimmune Disease: Yes (CROHN'S DISEASE ) Blood Disorders: No Bipolar Disorder: Yes Anxiety: No Depression: Yes Heart Rhythm Problems: No Cancer: No Cardiovascular Problems: Yes High Cholesterol: No Chemotherapy: No Chest Pain: No Congestive Heart Failure: No COPD: Yes Diabetes: Yes Patient Takes Glucophage: Yes Diminished Hearing: No Endocrine: No GERD: Yes Genitourinary: No Hypertension: Yes Immune Disorder: No Implanted Vascular Access Dvce: Yes Musculoskeletal: Yes (R/ SHOULDER REPLACEMENT 2003) Neurologic: No Psychiatric: Yes (BIPOLAR DISORDER) Reproductive: No Respiratory: Yes Immunizations Current: No Radiation Therapy: No Sleep Apnea: No Thyroid Disease: No ?: Not Menopausal: Yes Past Surgical History Body Medical Devices: R/ SHOULDER REPLACEMENT Other Surgery: Yes Social History Alcohol Use: No Tobacco Use: Yes (1 pack per day) Substance Use: No Allergies-Medications (Allergen,Severity, Reaction): Coded Allergies: erythromycin base (Verified Allergy, Severe, 04/16/17) Reported Meds & Prescriptions Reported Meds & Active Scripts Active Flexeril (Cyclobenzaprine HCl) 5 Mg Tab 5 Mg PO TID PRN Metformin (Metformin HCl) 1,000 Mg Tab 1,000 Mg PO BIDPC Ventolin Hfa 18 GM Inh (Albuterol Sulfate) 90 Mcg/Act Aer 2 Puff INH Q4H PRN Albuterol Neb (Albuterol Sulfate) 2.5 Mg/3 Ml Neb 2.5 Mg NEB QID NEB Reported Benztropine (Benztropine Mesylate) 0.5 Mg Tab 0.5 Mg PO HS Chlorthalidone 25 Mg Tab 25 Mg PO DAILY Mercaptopurine 50 Mg Tab 50 Mg PO DAILY Tessalon Perles (Benzonatate) 100 Mg Cap 100 Mg PO TID PRN Doxycycline Hyclate 100 Mg Cap 100 Mg PO BID Lisinopril 10 Mg Tab 10 Mg PO DAILY Gabapentin 300 Mg Cap 300 Mg PO QID Buspirone (Buspirone HCl) 15 Mg Tab 15 Mg PO TID Omeprazole 40 Mg Cap 40 Mg PO DAILY Apriso (Mesalamine) 0.375 Gm Caper 1.5 Gm PO DAILY Meclizine (Meclizine HCl) 25 Mg Tab 25 Mg PO DIRECTED PRN Effexor XR 24 HR (Venlafaxine HCl) 75 Mg Cap 225 Mg PO DAILY Review of Systems Except as stated in HPI: all other systems reviewed are Neg Physical Exam Narrative GENERAL: Well-developed well-nourished, no obvious distress SKIN: Focused skin assessment warm/dry. HEAD: Atraumatic. Normocephalic. EYES: Pupils equal and round. No scleral icterus. No injection or drainage. ENT: No nasal bleeding or discharge. Mucous membranes pink and moist. NECK: Trachea midline. No JVD. CARDIOVASCULAR: Regular rate and rhythm. No murmur appreciated. RESPIRATORY: No accessory muscle use. Clear to auscultation. Breath sounds equal bilaterally. GASTROINTESTINAL: Abdomen soft, non-tender, nondistended. Hepatic and splenic margins not palpable. MUSCULOSKELETAL: No obvious deformities. No clubbing. No cyanosis. No edema. There is no midline CT or L-spine tenderness, there is 5 out of 5 bilateral equal strength in all 4 extremities. No neurologic deficits and I can see. NEUROLOGICAL: Awake and alert. No obvious cranial nerve deficits. Motor grossly within normal limits. Normal speech. PSYCHIATRIC: Appropriate mood and affect; insight and judgment normal. Data Data Last Documented VS Vital Signs Date Time Temp Pulse Resp B/P (MAP) Pulse Ox O2 Delivery O2 Flow Rate FiO2 09/10/17 16:32 95 20 137/73 (94) 97 Room Air 09/10/17 12:35 97.7 Orders Orders Acetamin-Hydrocod 325-5 Mg (Spearfish 5-325 (09/10/17 16:30) Ed Discharge Order (09/10/17 16:36) MDM Medical Decision Making Medical Screen Exam Complete: Yes Emergency Medical Condition: Yes Differential Diagnosis Acute on chronic low back pain, cauda equina is been excluded clinically, fractures highly unlikely to Narrative Course Patient room to the emergency department, she has an appointment with paint spray inspector next week, she apparently thought that this is not soon enough and this is why she decided to take an ambulance here today. At this time she does not meet any indication for acute repeat imaging. She did have plain film imaging 18 August which showed no fracture, she has no midline pain and no history of trauma and this is a chronic condition. There is no indication for repeat imaging at this time. She was given a Spearfish here in the emergency department. At this time I do not see any indication further workup. The nature of her symptoms is chronic and she needs to follow-up with her primary care physician or paint spray inspector for further management of her pain Diagnosis Primary Impression: Acute exacerbation of chronic low back pain Disposition: 01 DISCHARGE HOME Condition: Stable Brannon Villarreal MD Sep 10, 2017 16:29
[2017-09-10] MEDS ORDERED: MERC50TA PO (16:30)
[2017-09-10] MEDS ORDERED: LISI10TA3 PO (16:30)
[2017-09-10] MEDS ORDERED: DOXY100C PO (16:30)
[2017-09-10] MEDS ORDERED: CHLO25TA2 PO (16:30)
[2017-09-10] MEDS ORDERED: BENZ0.5T PO (16:30)
[2017-09-10] MEDS ORDERED: BENZ100 PO (16:30)
[2017-09-10] MEDS ORDERED: ACETAMINOPHEN/HYDROcodone 325 MG/5 MG TAB PO ONE (16:30)
[2017-09-10 16:32] VITALS: BP 137/73; PULSE 95; RESP 20; O2SAT 97
== END 2017-09-10 17:30 | disposition home or self-care (01) ==
LOC: NEPD 12:32
DX: M54.5 Low back pain (principal); G89.29 Other chronic pain; I10 Essential (primary) hypertension; E11.9 Type 2 diabetes mellitus without complications; K50.90 Crohn's disease, unspecified, without complications; K21.9 Gastro-esophageal reflux disease without esophagitis; J44.9 Chronic obstructive pulmonary disease, unspecified; F31.9 Bipolar disorder, unspecified
CPT/HCPCS: 99283

== ENCOUNTER 2017-09-13 15:07 | Emergency (ER) | payer OTHER ==
[~2017-09-13 15:07] MED LIST changes: +BENZ0.5T PO; +BENZ100 PO; -Budeson-Formot 160-4.5 Mcg Inh INH; -CALC1TAB87 PO; +CHLO25TA2 PO; +DOXY100C PO; +LISI10TA3 PO; -LISI20TA PO; -MEDR4PAK PO; +MERC50TA PO
[2017-09-13 15:27] VITALS: BP 121/71; PULSE 103; RESP 20; TEMP 98.6; O2SAT 95
--- NOTE | 2017-09-13 16:18 | RADRPT ---
EXAM DATE/TIME: 09/13/2017 16:03 [facility] COMPARISON: CHEST PA & LAT, July 26, 2017, 18:25. INDICATIONS : Coughing for one month MEDICAL HISTORY : Chronic obstructive pulmonary disease. Diabetes mellitus type II. asthma, smoker, hypertension SURGICAL HISTORY : None. ENCOUNTER: Initial ACUITY: 1 month PAIN SCORE: 0/10 LOCATION: Bilateral chest FINDINGS: PA and lateral views of the chest demonstrate the lungs to be symmetrically aerated without evidence of mass, infiltrate or effusion. There is mild scarring in the right lung base. The cardiomediastinal contours are unremarkable. Osseous structures are intact. Patient is status post right shoulder art hroplasty. CONCLUSION: Stable appearance with no acute cardiac pulmonary disease. Santiago Schwartz MD on September 13, 2017 at 16:15 Board Certified Radiologist. This report was verified electronically.
[2017-09-13 17:05] LABS: AUTOMATED NEUTROPHIL # 3.9 TH/MM3 (1.8-7.7); BASOPHIL % 0.1 % (0.0-2.0); EOSINOPHIL % 0.1 % (0.0-4.0); HEMATOCRIT 36.3 % (35.0-46.0); HEMOGLOBIN 12.6 GM/DL (11.6-15.3); LYMPH % 36.4 % (9.0-44.0); LYMPHOCYTE # 2.5 TH/MM3 (1.0-4.8); MEAN CELL VOLUME 97.2 FL (80.0-100.0); MEAN CORPUSCULAR HEMOGLOBIN 33.8 PG (27.0-34.0); MEAN CORPUSCULAR HGB CONC 34.7 % (32.0-36.0); MEAN PLATELET VOLUME 8.2 FL (7.0-11.0); MONO % 5.8 % (0.0-8.0); MONOCYTE # 0.4 TH/MM3 (0-0.9); NEUT % 57.6 % (16.0-70.0); PLATELET COUNT 257 TH/MM3 (150-450); RED BLOOD COUNT 3.73 MIL/MM3 (4.00-5.30); RED CELL DISTRIBUTION WIDTH 14.7 % (11.6-17.2); WHITE BLOOD COUNT 6.7 TH/MM3 (4.0-11.0)
[2017-09-13 17:34] LABS: ALBUMIN 3.8 GM/DL (3.4-5.0); ALT (GPT) 23 U/L (10-53); AST (GOT) 19 U/L (15-37); BICARBONATE 25.6 MEQ/L (21.0-32.0); BLOOD UREA NITROGEN 24 MG/DL (7-18); CALCIUM 9.3 MG/DL (8.5-10.1); CHLORIDE 103 MEQ/L (98-107); CREATININE 1.24 MG/DL (0.50-1.00); GLOMERULAR FILTRATION RATE 44 ML/MIN (>89); GLUCOSE,RANDOM 101 MG/DL (74-106); SODIUM (NA) 138 MEQ/L (136-145)
[2017-09-13 17:36] LABS: ALKALINE PHOSPHATASE 72 U/L (45-117); TOTAL BILIRUBIN ADULT 0.8 MG/DL (0.2-1.0); TOTAL PROTEIN 7.2 GM/DL (6.4-8.2)
[2017-09-13 17:56] LABS: TOXIC GRANULATION 1+ (NORMAL)
--- NOTE | 2017-09-13 17:58 | PD ---
HPI Chief Complaint: GI Complaint Time Seen by Provider: 17:55 Travel History International Travel<30 days: No Contact w/Intl Traveler<30days: No Traveled to known affect area: No History of Present Illness HPI 62-year-old female presents to the emergency department with complaint of nausea and vomiting since Wednesday. Last vomited last night and has tolerated eating and drinking today without continued nausea or vomiting. Denies hematemesis. Denies fever. Reports feeling chills at work on Wednesday. Denies diarrhea. Denies abdominal pain. Denies dysuria, urinary frequency. Reports decreased appetite. No others with similar symptoms. Symptoms are mild in severity. Has not taken any medications or try any treatments to alleviate her symptoms. No known aggravating or relieving factors. Patient's lung sounds on physical exam are with wheezing throughout. She reports history of COPD and says she has had cough and phlegm production for the past few days. Last used her albuterol inhaler a few days ago. Says she feels a little short of breath now, but not much more than normal. Reports currently taking doxycycline that was prescribed by her PCP and says she is on it for "all of her illnesses." She said she had the flu and was hospitalized for pneumonia a month ago. primary care provider is Dr. Blackmon. Allergies to erythromycin. History of hypertension, diabetes type 2 and is on metformin, bipolar disorder, COPD. Has no other medical complaints. No other modifying factors or associated signs and symptoms. PFSH Past Medical History Asthma: Yes Autoimmune Disease: Yes (CROHN'S DISEASE ) Blood Disorders: No Bipolar Disorder: Yes Anxiety: No Depression: Yes Heart Rhythm Problems: No Cancer: No Cardiovascular Problems: Yes High Cholesterol: No Chemotherapy: No Chest Pain: No Congestive Heart Failure: No COPD: Yes Diabetes: Yes Diminished Hearing: No Endocrine: No GERD: Yes Genitourinary: No Hypertension: Yes Immune Disorder: No Implanted Vascular Access Dvce: Yes Musculoskeletal: Yes (R/ SHOULDER REPLACEMENT 2003) Neurologic: No Psychiatric: Yes (BIPOLAR DISORDER) Reproductive: No Respiratory: Yes Immunizations Current: No Radiation Therapy: No Sleep Apnea: No Thyroid Disease: No Menopausal: Yes Past Surgical History Body Medical Devices: R/ SHOULDER REPLACEMENT Other Surgery: Yes Social History Alcohol Use: No Tobacco Use: Yes (1 pack per day) Substance Use: No Allergies-Medications (Allergen,Severity, Reaction): Coded Allergies: erythromycin base (Verified Allergy, Severe, 04/16/17) Reported Meds & Prescriptions Reported Meds & Active Scripts Active Zofran Odt (Ondansetron Odt) 4 Mg Tab 4 Mg SL Q6HR PRN Deltasone (Prednisone) 20 Mg Tab 40 Mg PO DAILY 4 Days start 09/14/2017 Flexeril (Cyclobenzaprine HCl) 5 Mg Tab 5 Mg PO TID PRN Metformin (Metformin HCl) 1,000 Mg Tab 1,000 Mg PO BIDPC Ventolin Hfa 18 GM Inh (Albuterol Sulfate) 90 Mcg/Act Aer 2 Puff INH Q4H PRN Albuterol Neb (Albuterol Sulfate) 2.5 Mg/3 Ml Neb 2.5 Mg NEB QID NEB Reported Benztropine (Benztropine Mesylate) 0.5 Mg Tab 0.5 Mg PO HS Chlorthalidone 25 Mg Tab 25 Mg PO DAILY Mercaptopurine 50 Mg Tab 50 Mg PO DAILY Tessalon Perles (Benzonatate) 100 Mg Cap 100 Mg PO TID PRN Doxycycline Hyclate 100 Mg Cap 100 Mg PO BID Lisinopril 10 Mg Tab 10 Mg PO DAILY Gabapentin 300 Mg Cap 300 Mg PO QID Buspirone (Buspirone HCl) 15 Mg Tab 15 Mg PO TID Omeprazole 40 Mg Cap 40 Mg PO DAILY Apriso (Mesalamine) 0.375 Gm Caper 1.5 Gm PO DAILY Meclizine (Meclizine HCl) 25 Mg Tab 25 Mg PO DIRECTED PRN Effexor XR 24 HR (Venlafaxine HCl) 75 Mg Cap 225 Mg PO DAILY Review of Systems Except as stated in HPI: all other systems reviewed are Neg Physical Exam Narrative GENERAL: Well-nourished, well-developed female patient, in no acute distress; afebrile, nontoxic-appearing SKIN: Warm and dry. HEAD: Atraumatic. Normocephalic. EYES: Pupils equal and round. No scleral icterus. No injection or drainage. ENT: Mucosa pink and moist. No erythema or exudates. No uvular edema. No uvular , palatal, or tonsillar deviation. Airway patent. Nares without nasal blood, purulent drainage or septal hematoma. EARS: Bilateral pinnae and external canals appear within normal limits. Bilateral tympanic membranes without erythema, dullness or perforation. NECK: Trachea midline. No lymphadenopathy. CARDIOVASCULAR: Regular rate and rhythm. No murmur appreciated. RESPIRATORY: No accessory muscle use. Lungs with Wheezing throughout to auscultation. Breath sounds equal bilaterally. No retractions or tachypnea. No Audible wheezing noted. GASTROINTESTINAL: Abdomen soft, non-tender, nondistended. Hepatic and splenic margins not palpable. Bowel sounds are active 4 quadrants. MUSCULOSKELETAL: No obvious deformities. No clubbing. No cyanosis. No edema. NEUROLOGICAL: Awake and alert. Oriented 3. No obvious cranial nerve deficits. Motor grossly within normal limits. Normal speech. Moves all extremities. 5/5 strength to all extremities. PSYCHIATRIC: Appropriate mood and affect; insight and judgment normal. Data Data Last Documented VS Vital Signs Date Time Temp Pulse Resp B/P (MAP) Pulse Ox O2 Delivery O2 Flow Rate FiO2 09/13/17 19:57 90 16 126/75 (92) 98 Room Air 09/13/17 15:27 98.6 Orders Orders Complete Blood Count With Diff (09/13/17 15:28) Comprehensive Metabolic Panel (09/13/17 15:28) Lipase (09/13/17 15:28) Urinalysis - C+S If Indicated (09/13/17 15:28) Chest, Pa & Lat (09/13/17 ) Potassium Chloride (Kcl) (09/13/17 18:15) Prednisone (Deltasone) (09/13/17 18:15) Albuterol-Ipratropium Neb (Duoneb Neb) (09/13/17 18:15) Ed Discharge Order (09/13/17 19:58) Labs Laboratory Tests Test 09/13/17 15:50 09/13/17 16:00 Urine Color YELLOW Urine Turbidity CLEAR Urine pH 5.0 Urine Specific [place] 1.017 Urine Protein NEG mg/dL Urine Glucose (UA) NEG mg/dL Urine Ketones NEG mg/dL Urine Occult Blood NEG Urine Nitrite NEG Urine Bilirubin NEG Urine Urobilinogen LESS THAN 2.0 MG/DL Urine Leukocyte Esterase TRACE Urine RBC LESS THAN 1 /hpf Urine WBC 1 /hpf Urine Squamous Epithelial Cells 2 /hpf Urine Bacteria OCC /hpf Urine Hyaline Casts 18 /lpf Urine Mucus FEW /lpf Microscopic Urinalysis Comment CULT NOT INDICATED White Blood Count 6.7 TH/MM3 Red Blood Count 3.73 MIL/MM3 Hemoglobin 12.6 GM/DL Hematocrit 36.3 % Mean Corpuscular Volume 97.2 FL Mean Corpuscular Hemoglobin 33.8 PG Mean Corpuscular Hemoglobin Concent 34.7 % Red Cell Distribution Width 14.7 % Platelet Count 257 TH/MM3 Mean Platelet Volume 8.2 FL Neutrophils (%) (Auto) 57.6 % Lymphocytes (%) (Auto) 36.4 % Monocytes (%) (Auto) 5.8 % Eosinophils (%) (Auto) 0.1 % Basophils (%) (Auto) 0.1 % Neutrophils # (Auto) 3.9 TH/MM3 Lymphocytes # (Auto) 2.5 TH/MM3 Monocytes # (Auto) 0.4 TH/MM3 Eosinophils # (Auto) 0.0 TH/MM3 Basophils # (Auto) 0.0 TH/MM3 CBC Comment AUTO DIFF Differential Comment AUTO DIFF CONFIRMED Toxic Granulation 1+ Platelet Estimate NORMAL Platelet Morphology Comment NORMAL Blood Urea Nitrogen 24 MG/DL Creatinine 1.24 MG/DL Random Glucose 101 MG/DL Total Protein 7.2 GM/DL Albumin 3.8 GM/DL Calcium Level 9.3 MG/DL Alkaline Phosphatase 72 U/L Aspartate Amino Transf (AST/SGOT) 19 U/L Alanine Aminotransferase (ALT/SGPT) 23 U/L Total Bilirubin 0.8 MG/DL Sodium Level 138 MEQ/L Potassium Level 3.2 MEQ/L Chloride Level 103 MEQ/L Carbon Dioxide Level 25.6 MEQ/L Anion Gap 9 MEQ/L Estimat Glomerular Filtration Rate 44 ML/MIN Lipase 136 U/L MDM Medical Decision Making Medical Screen Exam Complete: Yes Emergency Medical Condition: Yes Medical Record Reviewed: Yes Differential Diagnosis Gastroenteritis, gastritis, vomiting alone, COPD exacerbation, viral illness, influenza, pneumonia Narrative Course 62-year-old female with history of COPD, hypertension, diabetes type 2 and is on metformin with vomiting since Wednesday and last vomited last night. She has been eating and drinking today without continued vomiting. Denies abdominal pain. Lungs are with wheezing throughout on physical exam. History of COPD. States she has had increasing cough and sputum production in the past few days. Denies fever. Reports chills. Denies nausea at this time. CBC, CMP, lipase , urinalysis, chest x-ray ordered in triage. DuoNeb, Deltasone ordered. Patient given Gatorade for oral challenge. 1756: CBC unremarkable. Potassium 3.2. 40MEQ potassium chloride ordered. BUN 24. Creatinine 1.24. BUN and creatinine are consistent with past levels. GFR 44 and is consistent with past levels. Chest x-ray conclude: stable appearance with no acute cardiac pulmonary disease. 1900: Report given to Sushil Ramirez PA-C at change of shift. See his note for final patient disposition. UA pending. Diagnosis Primary Impression: Vomiting alone Qualified Codes: R11.11 - Vomiting without nausea Additional Impression: COPD exacerbation Referrals: [facility] Primary Care Physician [place] Patient Instructions: Acute Nausea and Vomiting (ED), COPD (Chronic Obstructive Pulmonary Disease) (ED), General Instructions Additional Instructions: Continue antibiotics as prescribed and complete full course Use Albuterol inhaler as prescribed Take oral steroids as prescribed and complete full course [id number] decongestants or antihistamines as directed and as needed for symptom management Your cough can last 4-6 weeks Drink plenty of fluids to prevent dehydration Use hot air humidifier to decrease cough exacerbation Turn off ceiling fans and sleep with head of bed elevated Avoid triggers such as second hand smoke, dust, known allergens Follow-up with your primary care provider Return to the emergency department immediately with worsening of symptoms Med/Other Pt SpecificInfo: Prescription(s) given Scripts Ondansetron Odt (Zofran Odt) 4 Mg Tab 4 MG SL Q6HR Y for Nausea/Vomiting, #6 TAB 0 Refills Prov: Mann Ivey MD 09/13/17 Prednisone (Deltasone) 20 Mg Tab 40 MG PO DAILY for 4 Days, #8 TAB 0 Refills start 09/14/2017 Prov: Shira Bran 09/13/17 Disposition: 01 DISCHARGE HOME Condition: Stable Shira Bran Sep 13, 2017 17:58
[2017-09-13] MEDS ORDERED: POTASSIUM CHLORIDE 20 MEQ CONTROLLED RELEASE TAB PO ONE (18:15)
[2017-09-13] MEDS ORDERED: RESP: ALBUTEROL 2.5 MG/IPRATROPIUM 0.5 MG NEB (SCH) INH ONE (18:15)
[2017-09-13] MEDS ORDERED: predniSONE 20 MG TAB PO ONE (18:15)
[2017-09-13] MEDS ORDERED: PRED-503 PO (18:58)
[2017-09-13 19:46] LABS: BACTERIA, URINE OCC /hpf; BILIRUBIN, URINE NEG (NEG); BLOOD, URINE NEG (NEG); GLUCOSE,URINE NEG (NEG); HYALINE CAST, URINE 18 /lpf (RARE); KETONE, URINE NEG (NEG); MUCUS URINE FEW /lpf (OCC); NITRITE,URINE NEG (NEG); SQUAMOUS EPITHELIAL CELL URINE 2 /hpf (0-5); URINE COLOR YELLOW (YELLW/STRAW); URINE LEUKOCYTE ESTERASE TRACE (NEG)
[2017-09-13] MEDS ORDERED: ZOFR4TAB3 SL (19:55)
[2017-09-13 19:57] VITALS: BP 126/75; PULSE 90; RESP 16; O2SAT 98
--- NOTE | 2017-09-13 19:57 | PD ---
Physical Exam Date Seen by Provider: Sep 13, 2017 Time Seen by Provider: 19:56 Data Data Last Documented VS Vital Signs Date Time Temp Pulse Resp B/P (MAP) Pulse Ox O2 Delivery O2 Flow Rate FiO2 09/13/17 15:27 98.6 103 20 121/71 (88) 95 Orders Orders Complete Blood Count With Diff (09/13/17 15:28) Comprehensive Metabolic Panel (09/13/17 15:28) Lipase (09/13/17 15:28) Urinalysis - C+S If Indicated (09/13/17 15:28) Chest, Pa & Lat (09/13/17 ) Potassium Chloride (Kcl) (09/13/17 18:15) Prednisone (Deltasone) (09/13/17 18:15) Albuterol-Ipratropium Neb (Duoneb Neb) (09/13/17 18:15) Labs Laboratory Tests Test 09/13/17 15:50 09/13/17 16:00 Urine Color YELLOW Urine Turbidity CLEAR Urine pH 5.0 Urine Specific [place] 1.017 Urine Protein NEG mg/dL Urine Glucose (UA) NEG mg/dL Urine Ketones NEG mg/dL Urine Occult Blood NEG Urine Nitrite NEG Urine Bilirubin NEG Urine Urobilinogen LESS THAN 2.0 MG/DL Urine Leukocyte Esterase TRACE Urine RBC LESS THAN 1 /hpf Urine WBC 1 /hpf Urine Squamous Epithelial Cells 2 /hpf Urine Bacteria OCC /hpf Urine Hyaline Casts 18 /lpf Urine Mucus FEW /lpf Microscopic Urinalysis Comment CULT NOT INDICATED White Blood Count 6.7 TH/MM3 Red Blood Count 3.73 MIL/MM3 Hemoglobin 12.6 GM/DL Hematocrit 36.3 % Mean Corpuscular Volume 97.2 FL Mean Corpuscular Hemoglobin 33.8 PG Mean Corpuscular Hemoglobin Concent 34.7 % Red Cell Distribution Width 14.7 % Platelet Count 257 TH/MM3 Mean Platelet Volume 8.2 FL Neutrophils (%) (Auto) 57.6 % Lymphocytes (%) (Auto) 36.4 % Monocytes (%) (Auto) 5.8 % Eosinophils (%) (Auto) 0.1 % Basophils (%) (Auto) 0.1 % Neutrophils # (Auto) 3.9 TH/MM3 Lymphocytes # (Auto) 2.5 TH/MM3 Monocytes # (Auto) 0.4 TH/MM3 Eosinophils # (Auto) 0.0 TH/MM3 Basophils # (Auto) 0.0 TH/MM3 CBC Comment AUTO DIFF Differential Comment AUTO DIFF CONFIRMED Toxic Granulation 1+ Platelet Estimate NORMAL Platelet Morphology Comment NORMAL Blood Urea Nitrogen 24 MG/DL Creatinine 1.24 MG/DL Random Glucose 101 MG/DL Total Protein 7.2 GM/DL Albumin 3.8 GM/DL Calcium Level 9.3 MG/DL Alkaline Phosphatase 72 U/L Aspartate Amino Transf (AST/SGOT) 19 U/L Alanine Aminotransferase (ALT/SGPT) 23 U/L Total Bilirubin 0.8 MG/DL Sodium Level 138 MEQ/L Potassium Level 3.2 MEQ/L Chloride Level 103 MEQ/L Carbon Dioxide Level 25.6 MEQ/L Anion Gap 9 MEQ/L Estimat Glomerular Filtration Rate 44 ML/MIN Lipase 136 U/L [facility] Medical Record Reviewed: Yes Supervised Visit with KAT: No Interpretation(s) Laboratory Tests Test 09/13/17 15:50 09/13/17 16:00 Urine Color YELLOW Urine Turbidity CLEAR Urine pH 5.0 Urine Specific [place] 1.017 Urine Protein NEG mg/dL Urine Glucose (UA) NEG mg/dL Urine Ketones NEG mg/dL Urine Occult Blood NEG Urine Nitrite NEG Urine Bilirubin NEG Urine Urobilinogen LESS THAN 2.0 MG/DL Urine Leukocyte Esterase TRACE Urine RBC LESS THAN 1 /hpf Urine WBC 1 /hpf Urine Squamous Epithelial Cells 2 /hpf Urine Bacteria OCC /hpf Urine Hyaline Casts 18 /lpf Urine Mucus FEW /lpf Microscopic Urinalysis Comment CULT NOT INDICATED White Blood Count 6.7 TH/MM3 Red Blood Count 3.73 MIL/MM3 Hemoglobin 12.6 GM/DL Hematocrit 36.3 % Mean Corpuscular Volume 97.2 FL Mean Corpuscular Hemoglobin 33.8 PG Mean Corpuscular Hemoglobin Concent 34.7 % Red Cell Distribution Width 14.7 % Platelet Count 257 TH/MM3 Mean Platelet Volume 8.2 FL Neutrophils (%) (Auto) 57.6 % Lymphocytes (%) (Auto) 36.4 % Monocytes (%) (Auto) 5.8 % Eosinophils (%) (Auto) 0.1 % Basophils (%) (Auto) 0.1 % Neutrophils # (Auto) 3.9 TH/MM3 Lymphocytes # (Auto) 2.5 TH/MM3 Monocytes # (Auto) 0.4 TH/MM3 Eosinophils # (Auto) 0.0 TH/MM3 Basophils # (Auto) 0.0 TH/MM3 CBC Comment AUTO DIFF Differential Comment AUTO DIFF CONFIRMED Toxic Granulation 1+ Platelet Estimate NORMAL Platelet Morphology Comment NORMAL Blood Urea Nitrogen 24 MG/DL Creatinine 1.24 MG/DL Random Glucose 101 MG/DL Total Protein 7.2 GM/DL Albumin 3.8 GM/DL Calcium Level 9.3 MG/DL Alkaline Phosphatase 72 U/L Aspartate Amino Transf (AST/SGOT) 19 U/L Alanine Aminotransferase (ALT/SGPT) 23 U/L Total Bilirubin 0.8 MG/DL Sodium Level 138 MEQ/L Potassium Level 3.2 MEQ/L Chloride Level 103 MEQ/L Carbon Dioxide Level 25.6 MEQ/L Anion Gap 9 MEQ/L Estimat Glomerular Filtration Rate 44 ML/MIN Lipase 136 U/L Differential Diagnosis . Narrative Course I was asked to review the patient's laboratory test. Her urinalysis is negative for UTI. Chemistry and CBC are unremarkable. This is vomiting, COPD Diagnosis Primary Impression: Vomiting alone Qualified Codes: R11.11 - Vomiting without nausea Additional Impression: COPD exacerbation Referrals: [facility] Primary Care Physician [employer] Patient Instructions: General Instructions, COPD (Chronic Obstructive Pulmonary Disease) (ED), Acute Nausea and Vomiting (ED) Additional Instruction: Continue antibiotics as prescribed and complete full course Zofran for nausea vomiting. Use Albuterol inhaler as prescribed Take oral steroids as prescribed and complete full course [id number] decongestants or antihistamines as directed and as needed for symptom management Your cough can last 4-6 weeks Drink plenty of fluids to prevent dehydration Use hot air humidifier to decrease cough exacerbation Turn off ceiling fans and sleep with head of bed elevated Avoid triggers such as second hand smoke, dust, known allergens Follow-up with your primary care provider Return to the emergency department immediately with worsening of symptoms Med/Other Pt SpecificInfo: Prescription(s) given Scripts Ondansetron Odt (Zofran Odt) 4 Mg Tab 4 MG SL Q6HR Y for Nausea/Vomiting, #6 TAB 0 Refills Prov: Mann Ivey MD 09/13/17 Prednisone (Deltasone) 20 Mg Tab 40 MG PO DAILY for 4 Days, #8 TAB 0 Refills start 09/14/2017 Prov: Shira Bran 09/13/17 Disposition: 01 DISCHARGE HOME Condition: Stable Sushil Ramirez 26, 2018 19:57
== END 2017-09-13 20:10 | disposition home or self-care (01) ==
LOC: NED 15:07 → NEPD 20:10
DX: R11.11 Vomiting without nausea (principal); J44.1 Chronic obstructive pulmonary disease with (acute) exacerbation; E11.9 Type 2 diabetes mellitus without complications; I10 Essential (primary) hypertension; K21.9 Gastro-esophageal reflux disease without esophagitis; F31.9 Bipolar disorder, unspecified; F17.200 Nicotine dependence, unspecified, uncomplicated; Z79.84 Long term (current) use of oral hypoglycemic drugs
CPT/HCPCS: 71046; 80053; 81001; 83690; 85025; 94664; 99284; J7512

== ENCOUNTER 2017-11-18 11:35 | Emergency (ER) | payer OTHER ==
[~2017-11-18] VITALS: Ht 165.1 cm; Wt 90.5 kg
[~2017-11-18 11:35] MED LIST changes: +PRED-503 PO; +ZOFR4TAB3 SL
[2017-11-18 11:43] VITALS: BP 151/67; PULSE 106; RESP 20; TEMP 97.9; O2SAT 98
[2017-11-18] MEDS ORDERED: SODIUM CHLOR 0.9% 1000 ML INJ 1,000 ML IV SCH (13:57)
[2017-11-18 13:59] VITALS: BP 140/76; PULSE 87; RESP 17; O2SAT 100
[2017-11-18] MEDS ORDERED: ONDANSETRON ODT 4 MG TAB PO ONE (14:00)
[2017-11-18] MEDS ORDERED: SODIUM CHLORIDE 0.9% FLUSH 10 ML FLUSH IV FLUSH PRN (14:00)
--- NOTE | 2017-11-18 14:07 | PD ---
HPI Chief Complaint: GI Complaint Time Seen by Provider: 13:45 Travel History International Travel<30 days: No Contact w/Intl Traveler<30days: No Traveled to known affect area: No History of Present Illness HPI Patient comes emergency department complaining of cramping abdominal pain ongoing for 4 days. Patient states that Wednesday morning around 0330 at her hotel in [place] she began having nonbloody nonbilious vomiting and nonbloody diarrhea. Patient states that has since resolved but she continues to have nausea and cramping abdominal pain. Patient reports a history of Crohn's but states this does not feel like her Crohn's disease. Patient denies anything making symptoms better or worse. Patient reports she is only been drinking liquids secondary to not feeling well and afraid to eat thinking it will make her worse. Denies any known fevers, chest pain, shortness of breath, or known sick contacts. Patient did fly back from [place] after being there for the weekend for her son's wedding. Patient states she has not taken any of her medications since Wednesday secondary to not feeling well either. Denies any history of abdominal surgeries. Denies any radiation of pain. PFSH Past Medical History Asthma: Yes Autoimmune Disease: Yes (CROHN'S DISEASE ) Blood Disorders: No Bipolar Disorder: Yes Anxiety: No Depression: Yes Heart Rhythm Problems: No Cancer: No Cardiovascular Problems: Yes High Cholesterol: No Chemotherapy: No Chest Pain: No Congestive Heart Failure: No COPD: Yes Diabetes: Yes Patient Takes Glucophage: Yes Diminished Hearing: No Endocrine: No Gastrointestinal Disorders: No GERD: Yes Genitourinary: No Hypertension: Yes Immune Disorder: No Implanted Vascular Access Dvce: Yes Musculoskeletal: Yes (R/ SHOULDER REPLACEMENT 2003) Neurologic: No Psychiatric: Yes (BIPOLAR DISORDER) Reproductive: No Respiratory: Yes Immunizations Current: No Radiation Therapy: No Sleep Apnea: No Thyroid Disease: No ?: Unknown LMP: november 1999 Menopausal: Yes Past Surgical History Body Medical Devices: R/ SHOULDER REPLACEMENT Tonsillectomy: Yes Other Surgery: Yes Social History Alcohol Use: Yes (occas) Tobacco Use: Yes (1 pack per day) Substance Use: No Allergies-Medications (Allergen,Severity, Reaction): Coded Allergies: erythromycin base (Verified Allergy, Severe, 11/18/17) Reported Meds & Prescriptions Reported Meds & Active Scripts Active Zofran Odt (Ondansetron Odt) 4 Mg Tab 4 Mg SL Q6HR PRN Metformin (Metformin HCl) 1,000 Mg Tab 1,000 Mg PO BIDPC Reported Incruse Ellipta Inh (Umeclidinium [place] Inh) 0.0625 Mg/Act Inh 62.5 Mcg INH DAILY Tizanidine (Tizanidine HCl) 4 Mg Tab 4 Mg PO TID Chlorthalidone 25 Mg Tab 25 Mg PO DAILY Mercaptopurine 50 Mg Tab 50 Mg PO DAILY Lisinopril 10 Mg Tab 10 Mg PO DAILY Gabapentin 300 Mg Cap 600 Mg PO BID Buspirone (Buspirone HCl) 15 Mg Tab 15 Mg PO TID Omeprazole 40 Mg Cap 40 Mg PO DAILY Apriso (Mesalamine) 0.375 Gm Caper 1.5 Gm PO DAILY Effexor XR 24 HR (Venlafaxine HCl) 75 Mg Cap 225 Mg PO DAILY Review of Systems Except as stated in HPI: all other systems reviewed are Neg Physical Exam Narrative GENERAL: Well-developed, overly nourished, in no acute distress, and non-ill appearing. SKIN: Focused skin assessment warm and dry. HEAD: Atraumatic. Normocephalic. EYES: Pupils equal and round. EOMI. No scleral icterus. No injection or drainage. ENT: No nasal bleeding or discharge. Mucous membranes pink and moist. NECK: Trachea midline. Supple. No nuclear rigidity. CARDIOVASCULAR: Regular rate and rhythm. No murmur appreciated. RESPIRATORY: No accessory muscle use. No respiratory distress. Scant wheezing throughout. Breath sounds equal bilaterally. GASTROINTESTINAL: Abdomen soft, nondistended, and no guarding. Hepatic and splenic margins not palpable. Normal bowel sounds x4. No pulsatile mass. Patient reports mild pain throughout greatest in the right lower quadrant. MUSCULOSKELETAL: No obvious deformities. No clubbing. No cyanosis. No edema. Full range of motion. NEUROLOGICAL: Awake and alert. No obvious cranial nerve deficits. Motor grossly within normal limits. Normal speech. PSYCHIATRIC: Appropriate mood and affect; insight and judgment normal. Data Data Last Documented VS Vital Signs Date Time Temp Pulse Resp B/P (MAP) Pulse Ox O2 Delivery O2 Flow Rate FiO2 11/18/17 16:37 78 16 135/64 (87) 97 11/18/17 13:59 Room Air 11/18/17 11:43 97.9 Orders Orders Complete Blood Count With Diff (11/18/17 12:32) Comprehensive Metabolic Panel (11/18/17 12:32) Urinalysis - C+S If Indicated (11/18/17 12:32) Iv Access Insert/Monitor (11/18/17 12:32) Oxygen Administration (11/18/17 12:32) Oximetry (11/18/17 12:32) Lipase (11/18/17 12:32) Prothrombin Time / Inr (Pt) (11/18/17 13:57) Act Partial Throm Time (Ptt) (11/18/17 13:57) Ct Abd/Pel W/O Iv Contrast (11/18/17 13:57) Ecg Monitoring (11/18/17 13:57) Sodium Chlor 0.9% 1000 Ml Inj (Ns 1000 M (11/18/17 13:57) Sodium Chloride 0.9% Flush (Ns Flush) (11/18/17 14:00) Chest, Single Ap (11/18/17 13:57) Influenzae A/B Antigen (11/18/17 13:57) Ondansetron Odt (Zofran Odt) (11/18/17 14:00) Ed Discharge Order (11/18/17 16:20) Labs Laboratory Tests Test 11/18/17 13:55 11/18/17 14:30 White Blood Count 8.0 TH/MM3 Red Blood Count 4.14 MIL/MM3 Hemoglobin 14.2 GM/DL Hematocrit 41.1 % Mean Corpuscular Volume 99.3 FL Mean Corpuscular Hemoglobin 34.4 PG Mean Corpuscular Hemoglobin Concent 34.7 % Red Cell Distribution Width 13.8 % Platelet Count 282 TH/MM3 Mean Platelet Volume 8.2 FL Neutrophils (%) (Auto) 71.6 % Lymphocytes (%) (Auto) 23.6 % Monocytes (%) (Auto) 4.1 % Eosinophils (%) (Auto) 0.1 % Basophils (%) (Auto) 0.6 % Neutrophils # (Auto) 5.7 TH/MM3 Lymphocytes # (Auto) 1.9 TH/MM3 Monocytes # (Auto) 0.3 TH/MM3 Eosinophils # (Auto) 0.0 TH/MM3 Basophils # (Auto) 0.0 TH/MM3 CBC Comment DIFF FINAL Differential Comment Prothrombin Time 10.6 SEC Prothromb Time International Ratio 1.0 RATIO Activated Partial Thromboplast Time 26.6 SEC Blood Urea Nitrogen 15 MG/DL Creatinine 1.08 MG/DL Random Glucose 106 MG/DL Total Protein 8.6 GM/DL Albumin 4.3 GM/DL Calcium Level 10.4 MG/DL Alkaline Phosphatase 75 U/L Aspartate Amino Transf (AST/SGOT) 56 U/L Alanine Aminotransferase (ALT/SGPT) 30 U/L Total Bilirubin 1.7 MG/DL Sodium Level 137 MEQ/L Potassium Level 4.4 MEQ/L Chloride Level 98 MEQ/L Carbon Dioxide Level 25.4 MEQ/L Anion Gap 14 MEQ/L Estimat Glomerular Filtration Rate 52 ML/MIN Lipase 115 U/L Urine Color YELLOW Urine Turbidity HAZY Urine pH 5.5 Urine Specific [place] 1.019 Urine Protein TRACE mg/dL Urine Glucose (UA) NEG mg/dL Urine Ketones 10 mg/dL Urine Occult Blood NEG Urine Nitrite NEG Urine Bilirubin NEG Urine Urobilinogen 2.0 MG/DL Urine Leukocyte Esterase SMALL Urine RBC LESS THAN 1 /hpf Urine WBC 4 /hpf Urine Squamous Epithelial Cells 1 /hpf Urine Hyaline Casts 25 /lpf Urine Mucus FEW /lpf Microscopic Urinalysis Comment CULT NOT INDICATED MDM Medical Decision Making Medical Screen Exam Complete: Yes Emergency Medical Condition: Yes Interpretation(s) Last Impressions Chest X-Ray 11/18/17 993 Signed Impressions: CONCLUSION: 1. No acute abnormality or significant interval change. Abdomen/Pelvis CT 11/18/17 513 Signed Impressions: CONCLUSION: 1. No findings to indicate a bowel obstruction are identified. No free air dane e fluid is seen within the abdomen. 2. There are degenerative changes in the lumbar spine. 3. Atherosclerotic plaquing in the abdominal aorta. Differential Diagnosis Gastritis, appendicitis, pancreatitis, dehydration, UTI, influenza, metabolic disturbance Narrative Course The patient presented with crampy abdominal pain and nausea and the patient was accordingly mildly tender. The patient otherwise appeared comfortable and hydrated. Laboratory and radiologic evaluation with a CT scan of the abdomen and pelvis was performed. Evaluation revealed no clinical evidence of acute appendicitis or acute surgical abdomen at this time. The patient was instructed to follow up with their regular physician for re-evaluation, or may return here for re-evaluation. The patient is to return if worsens, pain worsens or changes , develop persistent fever, inability to tolerate fluids with or without vomiting, unable to establish follow up or as needed. There was no evidence of an acute, surgical abdomen at this time. There was no clinical evidence to support cholecystitis/cholelithiasis, pancreatitis, perforation of gastric ulcer , colitis, diverticulitis, obstruction, volvulus, early appendicitis, or hernial incarceration or strangulation at this time. There was no evidence to support vascular pathology such as AAA, mesenteric ischemia. There was also no clinical evidence by history, exam or risk factors to suggest atypical presentation of cardiac disease such as ACS, AMI or atypical angina. No evidence to suggest genitourinary etiology as well. During the course of the ED visit the patient was given IVF, the patient noted improvement. The patient agreed with plan of care and management. The patient was instructed to follow up with their physician. Patient in no obvious distress upon re-evaluation. All pertinent laboratory/ Radiology result(s) discussed with patient. Discussed patient with Dr. Griffin , who saw and evaluated the patient and is in agreement plan of care disposition. Any questions/concerns in reference to patient diagnosis/ condition discussed and clarified prior to patient's discharge. Reinforced sheer importance of close follow up with patient's primary physician or primary care clinic. Instructed patient to return to ED immediately, if symptoms return/ worsen. Patient showed understanding of above instructions. Further instructions and recommendations were detailed in discharge paperwork. Patient ambulated without difficulty out of ED at discharge. Diagnosis Primary Impression: Abdominal pain Qualified Codes: R10.9 - Unspecified abdominal pain Patient Instructions: Abdominal Pain (ED), General Instructions Additional Instructions: Follow-up with your primary care physician 2-5 days for reevaluation. Take all medication as prescribed. Drink plenty of non-caffeinated and nonalcoholic fluids. Return to the emergency department if symptoms get worse. Med/Other Pt SpecificInfo: Prescription(s) given Scripts Ondansetron Odt (Zofran Odt) 4 Mg Tab 4 MG SL Q6HR Y for Nausea/Vomiting, #16 TAB 0 Refills Prov: Eduard Griffin MD 11/18/17 Disposition: 01 DISCHARGE HOME Condition: Stable Jose Contreras November 18, 2017 14:07
--- NOTE | 2017-11-18 14:18 | RADRPT ---
EXAM DATE: 11/18/2017 2:14 PM EDT AGE/SEX: 62 years / Female INDICATIONS: Diarrhea and vomiting a few days ago. CLINICAL DATA: This is the patient's initial encounter. Patient reports that signs and symptoms have been present for 3 days and indicates a pain score of 0/10. MEDICAL/SURGICAL HISTORY: . diabetic, emphysema None. COMPARISON: [facility] [place], CHEST PA & LAT, 09/13/2017. . FINDINGS: No new focal pleural or parenchymal opacities. Cardiomediastinal contours are within normal limits. R ight shoulder arthroplasty in place. Bony thorax is intact. CONCLUSION: 1. No acute abnormality or significant interval change. Electronically signed by: Freddie Yi MD 11/18/2017 2:16 PM EDT
[2017-11-18] MEDS ORDERED: TIZA4TAB PO (14:27)
[2017-11-18] MEDS ORDERED: UMEC1INH INH (14:27)
[2017-11-18 14:35] LABS: AUTOMATED NEUTROPHIL # 5.7 TH/MM3 (1.8-7.7); BASOPHIL % 0.6 % (0.0-2.0); EOSINOPHIL % 0.1 % (0.0-4.0); HEMATOCRIT 41.1 % (35.0-46.0); HEMOGLOBIN 14.2 GM/DL (11.6-15.3); LYMPH % 23.6 % (9.0-44.0); LYMPHOCYTE # 1.9 TH/MM3 (1.0-4.8); MEAN CELL VOLUME 99.3 FL (80.0-100.0); MEAN CORPUSCULAR HEMOGLOBIN 34.4 PG (27.0-34.0); MEAN CORPUSCULAR HGB CONC 34.7 % (32.0-36.0); MEAN PLATELET VOLUME 8.2 FL (7.0-11.0); MONO % 4.1 % (0.0-8.0); MONOCYTE # 0.3 TH/MM3 (0-0.9); NEUT % 71.6 % (16.0-70.0); PLATELET COUNT 282 TH/MM3 (150-450); RED BLOOD COUNT 4.14 MIL/MM3 (4.00-5.30); RED CELL DISTRIBUTION WIDTH 13.8 % (11.6-17.2)
[2017-11-18 14:45] LABS: PROTHROMBIN TIME - PATIENT 10.6 SEC (9.8-11.6)
[2017-11-18 15:05] LABS: BLOOD, URINE NEG (NEG); GLUCOSE,URINE NEG (NEG); HYALINE CAST, URINE 25 /lpf (RARE); KETONE, URINE 10 mg/dL (NEG); MUCUS URINE FEW /lpf (OCC); NITRITE,URINE NEG (NEG); PH, URINE 5.5 (5.0-8.5); SQUAMOUS EPITHELIAL CELL URINE 1 /hpf (0-5); URINE COLOR YELLOW (YELLW/STRAW); URINE LEUKOCYTE ESTERASE SMALL (NEG)
[2017-11-18 15:06] LABS: BILIRUBIN, URINE NEG (NEG)
[2017-11-18 15:11] LABS: ALBUMIN 4.3 GM/DL (3.4-5.0); ALKALINE PHOSPHATASE 75 U/L (45-117); ALT (GPT) 30 U/L (10-53); AST (GOT) 56 U/L (15-37); BICARBONATE 25.4 MEQ/L (21.0-32.0); BLOOD UREA NITROGEN 15 MG/DL (7-18); CALCIUM 10.4 MG/DL (8.5-10.1); CHLORIDE 98 MEQ/L (98-107); CREATININE 1.08 MG/DL (0.50-1.00); GLOMERULAR FILTRATION RATE 52 ML/MIN (>89); GLUCOSE,RANDOM 106 MG/DL (74-106); SODIUM (NA) 137 MEQ/L (136-145); TOTAL BILIRUBIN ADULT 1.7 MG/DL (0.2-1.0); TOTAL PROTEIN 8.6 GM/DL (6.4-8.2)
--- NOTE | 2017-11-18 15:19 | RADRPT ---
EXAM DATE: 11/18/2017 3:12 PM EDT AGE/SEX: 62 years / Female INDICATIONS: Nausea and diarrhea for several days CLINICAL DATA: This is the patient's initial encounter. Patient reports that signs and symptoms have been present for 3 days and indicates a pain score of 4/10. MEDICAL/SURGICAL HISTORY: Hypertension. Chronic obstructive pulmonary disease. Gastroesophage al reflux disease. Diabetes, Crohn's None. RADIATION DOSE: 14.49 CTDI (mGy) COMPARISON: No prior [place] exams available for comparison. TECHNIQUE: Multiple contiguous axial images were obtained through the abdomen. Images were obtained using multiple row detector helical technique. Using dose reduction techniques, radiation dose was ke pt as low as reasonably achievable to obtain optimal diagnostic quality images. FINDINGS: The limited portion of lung base visualized demonstrates COPD changes and a small amount of atelectas is in the right lower lobe. The appearance of the liver, spleen, pancreas, adrenal glands and kidneys is within normal limits. The abdominal aorta demonstrates diffuse atherosclerotic plaquing but is normal in caliber. There is no retroperitoneal lymphadenopathy. The visualized loops of small and large bowel are unremarkable. There is no free air free fluid withi n the abdomen. There is no free fluid within the pelvis. No iliac or inguinal adenopathy is seen. The loops of small and large bowel within the pelvis are unremarkable. The visualized bony structures demonstrate degenerative changes but are otherwise intact. CONCLUSION: 1. No findings to indicate a bowel obstruction are identified. No free air free fluid is seen within the abdomen. 2. There are degenerative changes in the lumbar spine. 3. Atherosclerotic plaquing in the abdominal aorta. Electronically signed by: Mann Lo MD 11/18/2017 3:18 PM EDT
[2017-11-18] MEDS ORDERED: ZOFR4TAB3 SL (15:35)
[2017-11-18 16:37] VITALS: BP 135/64
== END 2017-11-18 17:19 | disposition home or self-care (01) ==
LOC: NEPE 11:35
DX: R10.9 Unspecified abdominal pain (principal); E11.9 Type 2 diabetes mellitus without complications; I10 Essential (primary) hypertension; F17.200 Nicotine dependence, unspecified, uncomplicated; K21.9 Gastro-esophageal reflux disease without esophagitis; F31.9 Bipolar disorder, unspecified; Z79.84 Long term (current) use of oral hypoglycemic drugs
CPT/HCPCS: 71045; 74176; 80053; 81001; 83690; 85025; 85610; 85730; 87804; 99285; J7030

== ENCOUNTER 2018-04-29 12:06 | Observation (INO) ==
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
[2018-04-29 17:44] LABS: Bilirubin,Urine Negative (Negative); Clarity,Urine Clear (Clear); Color,Urine Yellow (Yellw/Straw); Glucose,Urine (UA) Negative (Negative); Hyaline Casts,Urine 8 /lpf (0-3); Leukocyte Esterase,Urine Small (Negative); Nitrite,Urine Negative (Negative); Squamous Epithelial Cell,Urine 1 /hpf (0-5)
--- NOTE | 2018-04-29 18:06 | CT ---
EXAM DATE: 04/29/2018 5:53 PM EST AGE/SEX: 63 years / Female INDICATIONS: Weakness and off balance. CLINICAL DATA: This is the patient's initial encounter. Patient reports that signs and symptoms have been present for 1 day and indicates a pain score of 0/10. MEDICAL/SURGICAL HISTORY: Diabetes. Hypertension. None. RADIATION DOSE: 35.71 CTDI (mGy) COMPARISON: No prior exams available for comparison. TECHNIQUE: CT of the head without contrast. Using automated exposure control and adjustment of the mA and/or kV according to patient size, radiation dose was kept as low as reasonably achievable to ob tain optimal diagnostic quality images. DICOM format image data is available electronically for revi ew and comparison. FINDINGS: Cerebrum: The ventricles are normal for age. No evidence of midline shift, mass lesion, hemorrhage or acute infarction. No extraaxial fluid collections are seen. Posterior Fossa: The cerebellum and brainstem are intact. The 4th ventricle is midline. The cerebe llopontine angle is unremarkable. Extracranial: The visualized portion of the orbits is intact. Skull: The calvaria is intact. No evidence of skull fracture. CONCLUSION: 1. Negative CT Head non contrast. 2. No evidence of acute infarct, hemorrhage, mass or edema. . Electronically signed by: Myron Ocasio MD 04/29/2018 6:05 PM EST
[2018-04-29 18:40] LABS: Alanine Aminotransferase 31 U/L (10-53); Albumin 3.9 g/dL (3.4-5.0); Alkaline Phosphatase 93 U/L (45-117); Anion Gap 8 meq/L (5-15); Aspartate Aminotransferase 30 U/L (15-37); Blood Urea Nitrogen 14 mg/dL (7-18); Calcium 9.2 mg/dL (8.5-10.1); Carbon Dioxide 33.3 meq/L (21.0-32.0); Chloride 96 meq/L (98-107); Glomerular Filtration Rate 54 mL/min (>89); Glucose,Random 102 mg/dL (74-106); Magnesium 1.8 mg/dL (1.5-2.5); Sodium 137 meq/L (136-145); Total Protein 7.7 g/dL (6.4-8.2)
[2018-04-29 18:42] LABS: Potassium 2.7 meq/L (3.5-5.1)
[2018-04-29] MEDS ORDERED: Acetaminophen 325 MG Tablet PO PRN (20:07)
[2018-04-29] MEDS ORDERED: Bisacodyl 10 MG Supp RECTAL PRN (20:07)
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
[2018-04-29 20:39] LABS: Baso % (Auto) 0.8 % (0.0-2.0); Eos % (Auto) 0.1 % (0.0-4.0); Hematocrit 37.4 % (35.0-46.0); Hemoglobin 12.9 gm/dL (11.6-15.3); Lymph # (Auto) 1.9 th/mm3 (1.0-4.8); Lymph % (Auto) 35.2 % (9.0-44.0); Mean Corpuscular HGB Conc 34.6 % (32.0-36.0); Mean Corpuscular Hemoglobin 33.7 pg (27.0-34.0); Mean Corpuscular Volume 97.2 fL (80.0-100.0); Mean Platelet Volume 8.9 fL (7.0-11.0); Mono # (Auto) 0.3 th/mm3 (0.0-0.9); Mono % (Auto) 5.3 % (0.0-8.0); Neut # (Auto) 3.1 th/mm3 (1.8-7.7); Neut % (Auto) 58.6 % (16.0-70.0); Platelet Count 221 th/mm3 (150-450); Red Blood Count 3.84 mil/mm3 (4.00-5.30); Red Cell Distribution Width 14.6 % (11.6-17.2); White Blood Count 5.4 th/mm3 (4.0-11.0)
[2018-04-29] MEDS: Senna/Docusate Sodium 8.6/50 MG Tablet PO SCH (20:41)
[2018-04-29] MEDS: Sod Chloride 0.9% Inj 1,000 ML IV.CONT SCH (20:41)
--- NOTE | 2018-04-29 21:46 | ECG ---
Date Performed: 04/29/2018 Time Performed: 18:53:17 PTAGE: 63 years EKG: Baseline artifact present Sinus rhythm MODERATE ST DEPRESSION ABNORMAL ECG Compared to prior electrocardiogram, ST depression is slightly m ore marked. PREVIOUS TRACING : 07/26/2017 20.45 DOCTOR: Sam Israel Interpretating Date/Time 04/29/2018 21:45:35
[2018-04-30] MEDS ORDERED: Dextrose 50% in Water 50 ML Vial IV.PUSH PRN (00:37)
[2018-04-30] MEDS: Sod Chloride 0.9% Inj 1,000 ML IV.CONT SCH (05:16)
[2018-04-30 07:26] VITALS: PULSE 85
--- NOTE | 2018-04-30 08:50 | MR ---
EXAM DATE: 04/30/2018 8:39 AM EST AGE/SEX: 63 years / Female INDICATIONS: . Abnormal gait for last two weeks. CLINICAL DATA: This is the patient's initial encounter. Patient reports that signs and symptoms have been present for 2 weeks and indicates a pain score of 5/10. MEDICAL/SURGICAL HISTORY: Diabetes mellitus type II. Hypertension. Tonsillectomy. Discectomy, lumbar. Rt shoulder sx. [place] [facility] [place]/O [place]AST, [place]/30/2018. . TECHNIQUE: Multiplanar, multisequence MRI examination of the cervical spine was performed without an d with 10 ml Gadavist (gadobutrol) contrast as a single exam dose. FINDINGS: Alignment is normal. There is disc desiccation diffusely. Moderate disc space narrowing at C5-C6 with multilevel osteophyte formation. The bone marrow signal intensity is normal. Spinal cord signal inte nsity is normal. C2-C3: The thecal sac has a normal configuration. There is no evidence of disc herniation or spinal canal stenosis. The neural foramina are patent bilaterally. C3-C4: Mild diffuse disc bulge with mild effacement of ventral thecal sac. C4-C5: Mild disc bulge with mild effacement of the ventral thecal sac. Uncovertebral hypertrophy and mild foraminal narrowing suspected. Mild canal narrowing. C5-C6: Diffuse disc osteophyte complex abuts the cord with moderate stenosis. Uncovertebral hypertro phy and severe bilateral foraminal narrowing. C6-C7: Diffuse disc bulge with mild canal stenosis and effacement of the ventral thecal sac. Uncover tebral hypertrophy and moderate bilateral foraminal narrowing. C7-T1: No epidural impressions seen. CONCLUSION: 1. Degenerative changes are noted as above. Electronically signed by: Patrick López MD 04/30/2018 8:49 AM EST
--- NOTE | 2018-04-30 08:51 | MR ---
EXAM DATE: 04/30/2018 8:40 AM EST AGE/SEX: 63 years / Female INDICATIONS: . Abnormal gait for last two weeks. CLINICAL DATA: This is the patient's initial encounter. Patient reports that signs and symptoms have been present for 2 weeks and indicates a pain score of 4/10. MEDICAL/SURGICAL HISTORY: Hypertension. Diabetes mellitus type II. Tonsillectomy. Discectomy, lumbar. COMPARISON: [facility] – [place], [place] HEAD W/O CONTRAST, 04/29/2018. . TECHNIQUE: Multiplanar, multisequence examination of the brain was performed without and with 10 ml G adavist (gadobutrol) contrast as a single exam dose. FINDINGS: CSF spaces, ventricles and cisterns are of normal size and configuration. No evidence for acute infar ction on diffusion-weighted images. The signal intensity of the brain is normal. No hemorrhage or mas s. No abnormal enhancing lesions seen. CONCLUSION: 1. Negative MR Brain with and without contrast. Electronically signed by: Patrick López MD 04/30/2018 8:50 AM EST
--- NOTE | 2018-04-30 08:54 | MR ---
EXAM DATE: 04/30/2018 8:43 AM EST AGE/SEX: 63 years / Female INDICATIONS: . Abnormal gait for last two weeks after fall. CLINICAL DATA: This is the patient's initial encounter. Patient reports that signs and symptoms have been present for 2 weeks and indicates a pain score of 4/10. MEDICAL/SURGICAL HISTORY: Hypertension. Diabetes mellitus type II. Tonsillectomy. Discectomy, lumbar. Rt shoulder sx. COMPARISON: [facility] [place] CERVICAL [place]INE W & W/O CON, 04/30/2018. [facility] [place] THORACIC SPINE W & W/O CON, 04/30/2018. . TECHNIQUE: Multiplanar, multisequence MRI examination of the lumbar spine was performed without and with 10 ml Gadavist (gadobutrol) contrast as a single exam dose. FINDINGS: Grade 1 anterolisthesis of L4 on L5. Diffuse disc desiccation. Severe disc space narrowing at L2-3 th rough L4-5. Mild reactive endplate edema at L2-3 and L4-5. Conus unremarkable. No compression deformi ties. Bilateral L4 pars defects. T12-L1: Minimal diffuse disc bulge with no canal or foraminal narrowing. L1-L2: Diffuse disc bulge with tiny left central protrusion impinging upon the left L2 nerve roots. There is mild abutment of the left L1 exiting nerve. Moderate facet and ligamentum flavum hypertroph y. Moderate left, mild right foraminal narrowing. L2-L3: Diffuse disc bulge is present abutting the L2 exiting nerves and impinging on the L3 nerve r oots. There is mild canal stenosis. Moderate facet and ligamentum flavum hypertrophy. Moderate bilate ral foraminal narrowing. L3-L4: Disc bulge is present. Postlaminectomy changes are seen. There is abutment of the L3 exiting nerves. There is no canal stenosis. There is severe bilateral foraminal narrowing. L4-L5: A diffuse disc bulge is present. L4 pars defects. Moderate canal stenosis with severe facet arthropathy. Mild foraminal narrowing. Abutment of the L4 exiting nerves. L5-S1: Central disc bulge abuts the S1 nerve roots. Moderate facet hypertrophy. No canal or foramin al narrowing. CONCLUSION: 1. Degenerative changes and postsurgical changes are noted as above. Electronically signed by: Patrick López MD 04/30/2018 8:53 AM EST
--- NOTE | 2018-04-30 08:55 | MR ---
EXAM DATE: 04/30/2018 8:36 AM EST AGE/SEX: 63 years / Female INDICATIONS: . Abnormal gait for last two weeks after fall. CLINICAL DATA: This is the patient's initial encounter. Patient reports that signs and symptoms have been present for 2 weeks and indicates a pain score of 5/10. MEDICAL/SURGICAL HISTORY: Hypertension. Diabetes mellitus type II. Tonsillectomy. Discectomy, lumbar. Rt shoulder sx. COMPARISON: [facility] [place] CERVICAL [place]INE W & W/O CON, 04/30/2018. . TECHNIQUE: Multiplanar, multisequence MRI of the thoracic spine was performed without and with 10 ml Gadavist (gadobutrol) contrast as a single exam dose. FINDINGS: Vertebrae: Normal vertebral body height. Homogeneous marrow signal. Mild multilevel osteophytosis i s seen. Mild diffuse disc desiccation. Alignment: Normal. Cord: Normal position and configuration. Post Contrast: No abnormal areas of enhancement are seen in the cord, dural or paraspinal regions. T1-T2: The thecal sac has a normal diameter. No evidence of disc bulge or protrusion. T2-T3: The thecal sac has a normal diameter. No evidence of disc bulge or protrusion. T3-T4: The thecal sac has a normal diameter. No evidence of disc bulge or protrusion. T4-T5: The thecal sac has a normal diameter. No evidence of disc bulge or protrusion. T5-T6: The thecal sac has a normal diameter. No evidence of disc bulge or protrusion. T6-T7: Tiny left central protrusion without canal or foraminal narrowing. T7-T8: The thecal sac has a normal diameter. No evidence of disc bulge or protrusion. T8-T9: The thecal sac has a normal diameter. No evidence of disc bulge or protrusion. T9-T10: The thecal sac has a normal diameter. No evidence of disc bulge or protrusion. T10-T11: The thecal sac has a normal diameter. No evidence of disc bulge or protrusion. T11-T12: The thecal sac has a normal diameter. No evidence of disc bulge or protrusion. T12-L1: The thecal sac has a normal diameter. No evidence of disc bulge or protrusion. CONCLUSION: 1. Mild degenerative changes. No evidence for canal or foraminal stenosis. Electronically signed by: Patrick López MD 04/30/2018 8:54 AM EST
[2018-04-30] MEDS ORDERED: traZODone 100 MG Tablet PO SCH (09:00)
[2018-04-30] MEDS ORDERED: lamoTRIgine 100 MG Tablet PO SCH (09:00)
[2018-04-30] MEDS ORDERED: Gadobutrol PF 10 MMOL/10 ML Vial (for RAD) IV.SIG ONE (09:03)
[2018-04-30] MEDS: Insulin NovoLOG Aspart Correctional Sugar Inj SQ SCH ×2 (09:43→12:08)
[2018-04-30] MEDS: Senna/Docusate Sodium 8.6/50 MG Tablet PO SCH (10:05)
[2018-04-30 10:38] LABS: Baso % (Auto) 0.1 % (0.0-2.0); Hematocrit 36.7 % (35.0-46.0); Hemoglobin 12.9 gm/dL (11.6-15.3); Lymph # (Auto) 0.9 th/mm3 (1.0-4.8); Lymph % (Auto) 22.5 % (9.0-44.0); Mean Corpuscular HGB Conc 35.2 % (32.0-36.0); Mean Corpuscular Hemoglobin 34.4 pg (27.0-34.0); Mean Corpuscular Volume 97.9 fL (80.0-100.0); Mono # (Auto) 0.2 th/mm3 (0.0-0.9); Mono % (Auto) 5.7 % (0.0-8.0); Neut % (Auto) 71.7 % (16.0-70.0); Platelet Count 203 th/mm3 (150-450); Red Blood Count 3.75 mil/mm3 (4.00-5.30); Red Cell Distribution Width 14.3 % (11.6-17.2); White Blood Count 4.1 th/mm3 (4.0-11.0)
[2018-04-30 11:06] LABS: Alanine Aminotransferase 29 U/L (10-53); Albumin 3.7 g/dL (3.4-5.0); Alkaline Phosphatase 96 U/L (45-117); Anion Gap 9 meq/L (5-15); Aspartate Aminotransferase 27 U/L (15-37); Blood Urea Nitrogen 9 mg/dL (7-18); Calcium 9.6 mg/dL (8.5-10.1); Carbon Dioxide 29.3 meq/L (21.0-32.0); Chloride 104 meq/L (98-107); Glomerular Filtration Rate 63 mL/min (>89); Glucose,Random 130 mg/dL (74-106); Potassium 3.4 meq/L (3.5-5.1); Sodium 142 meq/L (136-145); Total Protein 7.5 g/dL (6.4-8.2)
--- NOTE | 2018-04-30 11:42 | P.CONNS ---
History of Present Illness Primary Care Provider: UNKNOWN Chief Complaint: ataxia History of Present Illness: 63yoF who fell three weeks ago running for a bus. Since that time, she has been walking "like she is drunk". She also endorses weakness in the hands. Workup in the ER showed MRI C-spine with mod/sev DJD and also lumbar degeneration. NSG consulted. [facility] - History History Provided By: Patient - Medical History Medical History: Medical History (Last Updated 04/29/18 @ 16:35 by Hortencia Garcia) Anxiety Bipolar 1 disorder Diabetes Hypertension Schizo affective schizophrenia GERD (gastroesophageal reflux disease) - Tobacco History Second Hand Smoke Exposure: No Tobacco Use In Past 30 Days: Yes Smoking Status: Current every day smoker Tobacco Type: Cigarettes - Alcohol History How Often Do You Have a Drink Containing Alcohol: Monthly or less - Substance Use History Substance History: No History of Abuse - Travel History Recent Travel in the [place] Within the Last 8 Weeks: No Recent Travel Out of the Country Within the Last 8 Weeks: No - Immunization History Tetanus Immunization: Unsure Medications and Allergies Active Medications: Active Medications Acetaminophen (Tylenol) 650 mg PO Q4H PRN PRN Reason: Temp > 100.4 Al Hydroxide/Mg Hydroxide (Milk Of Magnesia Liq) 30 ml PO Q12H PRN PRN Reason: Mild Constipation Aspirin (Ecotrin) 81 mg PO DAILY [facility] Last Admin: 04/30/18 10:07 Dose: 81 mg Bisacodyl (Dulcolax Supp) 10 mg RECTAL DAILY PRN PRN Reason: SEVERE CONSITIPATION Buspirone HCl (Buspar) 15 mg PO TID [facility] Last Admin: 04/30/18 10:06 Dose: 15 mg Dextrose (D50w Vial) 50 ml IV.PUSH UNSCH PRN PRN Reason: PER HYPOGLYCEMIA PROTOCOL Glucagon (Glucagon Inj) 1 mg OTHER PRN PRN PRN Reason: for Hypoglycemia Protocol Sodium Chloride (Ns Inj) 1,000 mls @ 100 mls/hr IV.CONT .Q10H [facility] Last Admin: 04/30/18 05:16 Dose: 100 mls/hr Insulin Aspart (Novolog Insulin Correctional Sugar Inj) 0 unit SQ ACHS [facility]; Protocol Last Admin: 04/30/18 09:43 Dose: Not Given Lactulose (Lactulose Liq) 30 ml PO DAILY PRN PRN Reason: SEVERE CONSITIPATION Lamotrigine (Lamictal) 100 mg PO DAILY [facility] Last Admin: 04/30/18 10:07 Dose: 100 mg Montelukast Sodium (Singulair) 10 mg PO QPM [facility] Pantoprazole Sodium (Protonix) 40 mg PO BID [facility] Last Admin: 04/30/18 10:07 Dose: 40 mg Patient Own Med- Cariprazine (Vraylar ) 1.5mg Capsule 0 each PO BID [facility] Pravastatin Sodium (Pravachol) 40 mg PO DAILY [facility] Last Admin: 04/30/18 10:07 Dose: 40 mg Senna/Docusate Sodium (Gertrudis-Colace) 1 tab PO BID [facility] Last Admin: 04/30/18 10:05 Dose: Not Given Sennosides (Senokot) 17.2 mg PO Q12H PRN PRN Reason: Moderate Constipation Sodium Chloride (Ns Flush) 2 ml IV.FLUSH PRN PRN PRN Reason: FLUSH AFTER USING IV ACCESS Trazodone HCl (Desyrel) 100 mg PO DAILY [facility] Last Admin: 04/30/18 10:06 Dose: Not Given Trihexyphenidyl HCl (Artane) 2 mg PO BID [facility] Last Admin: 04/30/18 11:11 Dose: 2 mg Allergies Allergy/AdvReac Type Severity Reaction Status Date / Time erythromycin base Allergy Severe Edema Verified 04/29/18 12:23 Home Medications Medication Instructions Recorded Confirmed Type albuterol sulfate [Ventolin HFA] 2 puff INHALATION Q4-6H PRN 04/29/18 04/29/18 History buspirone 15 mg PO TID 04/29/18 04/29/18 History cariprazine [Vraylar] 1.5 mg PO BID 04/29/18 04/29/18 History chlorthalidone 25 mg PO DAILY 04/29/18 04/29/18 History fluticasone-vilanterol [Breo 1 inh INHALATION DAILY 04/29/18 04/29/18 History Ellipta] gabapentin 300 mg PO QID 04/29/18 04/29/18 History lamotrigine 100 mg PO DAILY 04/29/18 04/29/18 History meclizine 25 mg PO TID 04/29/18 04/29/18 History mercaptopurine 100 mg PO DAILY 04/29/18 04/29/18 History metformin 1,000 mg PO BID 04/29/18 04/29/18 History montelukast [Singulair] 10 mg PO QPM 04/29/18 04/29/18 History omeprazole 40 mg PO BID 04/29/18 04/29/18 History tizanidine 4 mg PO TID PRN 04/29/18 04/29/18 History tramadol 50 mg PO Q8H PRN 04/29/18 04/29/18 History trazodone 100 mg PO DAILY 04/29/18 04/29/18 History trihexyphenidyl 2 mg PO BID 04/29/18 04/29/18 History umeclidinium [Incruse Ellipta] 1 inh INHALATION DAILY 04/29/18 04/29/18 History Exam Vital signs: Vital Signs 04/29/18 12:20 04/29/18 18:46 04/29/18 22:01 Temperature 98.3 F Pulse Rate 83 63 73 Respiratory Rate 20 17 Blood Pressure 137/65 142/73 H Pulse Oximetry 97 100 04/29/18 22:14 04/30/18 00:00 04/30/18 03:06 Temperature 97.9 F 98.1 F Pulse Rate 61 72 68 Respiratory Rate 18 18 Blood Pressure 145/84 H 115/61 Pulse Oximetry 94 L 95 04/30/18 04:00 04/30/18 07:24 Temperature 98.3 F Pulse Rate 68 85 Respiratory Rate 15 Blood Pressure 122/74 Pulse Oximetry 96 Intake & Output 04/29/18 04/30/18 04/30/18 18:59 06:59 18:59 Intake Total 1000 / 1000 Balance 1000 / 1000 Weight 95.254 kg Intake: IV 1000 / 1000 NS Inj 1,000 ML @ 100 mls/hr IV 1000 / 1000 .CONT .Q10H [facility] Rx#:[id number] Narrative: A&o x 3 CN ii-xii intact 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, otherwise 5/5 Lower extremity 5/5 Lying in bed, unable to test proprioception or gait Results - Laboratory Findings CBC and BMP: 04/30/18 10:10 04/30/18 10:10 Abnormal lab findings: Abnormal Labs 04/29/18 04/29/18 04/29/18 17:10 17:10 17:10 RBC 3.84 L MCH Neut % (Auto) Lymph # (Auto) Potassium 2.7 L* Chloride 96 L Carbon Dioxide 33.3 H Creatinine 1.03 H Estimated GFR 54 L POC Glucose Random Glucose Troponin I Less than 0.02 L Ur Leukocyte Esterase Small H 04/30/18 04/30/18 04/30/18 08:46 10:10 10:10 RBC 3.75 L MCH 34.4 H Neut % (Auto) 71.7 H Lymph # (Auto) 0.9 L Potassium 3.4 L Chloride Carbon Dioxide Creatinine Estimated GFR 63 L POC Glucose 152 H Random Glucose 130 H Troponin I Ur Leukocyte Esterase - Diagnostic Findings Additional findings: MRI Brain - normal/ CTL-spine as above with mod/severe disc osteophyte complexes causing central stenosis at multiple levels in cervical and one lumbar Assessment and Plan - Plan Cervical spondylosis with myelopathy could be contributing to her ataxia. Recommend outpatient follow up with K[facility] to discuss this. Possibility of future surgery. Also discussed bracing but she does not endorse neck pain. She is not ready for a surgery and will followup with us outpatient, especially if she's getting worse.
--- NOTE | 2018-04-30 13:16 | P.DS ---
Date of admission: 04/29/18 20:06 Primary care physician: UNKNOWN Attending physician on discharge: Mary Sierra Anticipated date of discharge: 04/30/18 Brief History from admission: This is a 63-year-old female with a PMH of HTN, Hyperlipidemia, Anxiety, Schizophrenia, Tobacco Abuse and DM who was referred to the ER by her PCP for evaluation of recurrent falls and ataxia. Pt reports episode of fall few weeks ago, states she keeps "tripping on my own feet", has been using a cane w/ ambulation since that time. Also notes "feet dragging" intermittently and ataxia, falls to both sides. Was seen by PCP today and referred to ER for eval. Denies fever, chills, SOB, chest pain or recent injury/trauma. On arrival, 5, HR 83, O2 sat 97% on RA, Afebrile. CBC unremarkable. K+ 2.7. Creatinine 1.03, troponin negative. UA negative for UTI. CT Head with no acute findings. Dr. Menard consulted by ER physician, recommendation for MR Brain/Spine for further eval. Patient update on day of discharge: Patient is seen lying in bed. She is also seen ambulating in room and hallway. Appears stable. She denies any new weakness or instability. No chest pain or shortness of breath. No nausea vomiting or diarrhea. DS: Diagnosis - Discharge Diagnosis (1) Cervical spondylosis with myelopathy Status: Acute (2) Recurrent falls Status: Acute (3) Ataxia Status: Acute (4) Hypokalemia Status: Resolved DS: Summary Hospital Course: Recurrent Falls: reports tripping over her own feet, no LOC or head trauma, recent eval in ER after fall while running for the bus, negative work up at that time. Ataxia bilaterally w/ ambulation, intermittent. CT Head negative for acute findings, images reviewed. Further evaluation by MRI and neurosurgery due to cervical spondylolysis -neurosurgery recommends outpatient follow-up. Also on Lamotrigine and Trazodone for Schizophrenia/Bipolar Disorder , possibly contributing to symptoms. She did have mild hypokalemia at admit which resolved with replacement. - Time Spent with Patient Total time spent providing and/or coordinating discharge services: Less than 30 minutes Exam Vital signs: Vital Signs 04/29/18 18:46 04/29/18 22:01 04/29/18 22:14 Temperature 97.9 F Pulse Rate 63 73 61 Respiratory Rate 17 18 Blood Pressure 142/73 H 145/84 H Pulse Oximetry 100 94 L 04/30/18 00:00 04/30/18 03:06 04/30/18 04:00 Temperature 98.1 F Pulse Rate 72 68 68 Respiratory Rate 18 Blood Pressure 115/61 Pulse Oximetry 95 04/30/18 07:24 Temperature 98.3 F Pulse Rate 85 Respiratory Rate 15 Blood Pressure 122/74 Pulse Oximetry 96 Intake & Output 04/29/18 04/30/18 04/30/18 18:59 06:59 18:59 Intake Total 1000 / 1000 Balance 1000 / 1000 Weight 95.254 kg Intake: IV 1000 / 1000 NS Inj 1,000 ML @ 100 mls/hr IV 1000 / 1000 .CONT .Q10H [facility] Rx#:[id number] Narrative: GENERAL: Pleasant middle-aged white female in no acute distress. SKIN: Focused skin assessment warm and dry. CARDIOVASCULAR: Regular rate and rhythm. No obvious murmurs to auscultation. No chest tenderness to palpation. RESPIRATORY: No obvious rhonchi or wheezing. Clear to auscultation. Breath sounds equal bilaterally. GASTROINTESTINAL: Abdomen soft, non-tender, nondistended. BS normal. MUSCULOSKELETAL: Extremities without clubbing, cyanosis, or edema. No obvious deformities. NEUROLOGICAL: Awake, alert and oriented x4. No focal neurologic deficits. Moving both upper and lower extremities spontaneously. PSYCHIATRIC: Appropriate mood and affect. Insight and judgment normal. Results Procedures completed during hospitalization: none Labs on day of discharge: Labs from last 24 hours 04/30/18 04/30/18 04/30/18 10:10 10:10 10:10 WBC 4.1 RBC 3.75 L Hgb 12.9 Hct 36.7 MCV 97.9 MCH 34.4 H MCHC 35.2 RDW 14.3 Plt Count 203 MPV 8.0 Neut % (Auto) 71.7 H Lymph % (Auto) 22.5 [place] % (Auto) 5.7 Eos % (Auto) 0.0 Baso % (Auto) 0.1 Neut # (Auto) 3.0 Lymph # (Auto) 0.9 L [place] # (Auto) 0.2 Eos # (Auto) 0.0 Baso # (Auto) 0.0 WBC Differential . Differential Comment Auto diff final Sodium 142 Potassium 3.4 L Chloride 104 D Carbon Dioxide 29.3 Anion Gap 9 BUN 9 Creatinine 0.90 Estimated GFR 63 L POC Glucose Random Glucose 130 H Calcium 9.6 Magnesium 1.9 Total Bilirubin 0.8 AST 27 ALT 29 Alkaline Phosphatase 96 Troponin I Total Protein 7.5 Albumin 3.7 Urine Color Urine Clarity Urine pH Ur Specific [place] Urine Protein Urine Glucose (UA) Urine Ketones Urine Occult Blood Urine Nitrate Urine Bilirubin Urine Urobilinogen Ur Leukocyte Esterase Urine WBC Ur Squamous Epith Cells Hyaline Casts Micro UA Comment Ur Microscopic Review Urine Culture Comments 04/30/18 04/29/18 04/29/18 08:46 17:10 17:10 WBC RBC Hgb Hct MCV MCH MCHC RDW Plt Count MPV Neut % (Auto) Lymph % (Auto) [place] % (Auto) Eos % (Auto) Baso % (Auto) Neut # (Auto) Lymph # (Auto) [place] # (Auto) Eos # (Auto) Baso # (Auto) WBC Differential Differential Comment Sodium 137 Potassium 2.7 L* Chloride 96 L Carbon Dioxide 33.3 H Anion Gap 8 BUN 14 Creatinine 1.03 H Estimated GFR 54 L POC Glucose 152 H Random Glucose 102 Calcium 9.2 Magnesium 1.8 Total Bilirubin 0.8 AST 30 ALT 31 Alkaline Phosphatase 93 Troponin I Less than 0.02 L Total Protein 7.7 Albumin 3.9 Urine Color Yellow Urine Clarity Clear Urine pH 6.0 Ur Specific [place] 1.010 Urine Protein Negative Urine Glucose (UA) Negative Urine Ketones Negative Urine Occult Blood Negative Urine Nitrate Negative Urine Bilirubin Negative Urine Urobilinogen Less than 2 Ur Leukocyte Esterase Small H Urine WBC 3 Ur Squamous Epith Cells 1 Hyaline Casts 8 Micro UA Comment Culture not ind Ur Microscopic Review Not Reportable Urine Culture Comments Culture not ind 04/29/18 17:10 WBC 5.4 RBC 3.84 L Hgb 12.9 Hct 37.4 MCV 97.2 MCH 33.7 MCHC 34.6 RDW 14.6 Plt Count 221 MPV 8.9 Neut % (Auto) 58.6 Lymph % (Auto) 35.2 [place] % (Auto) 5.3 Eos % (Auto) 0.1 Baso % (Auto) 0.8 Neut # (Auto) 3.1 Lymph # (Auto) 1.9 [place] # (Auto) 0.3 Eos # (Auto) 0.0 Baso # (Auto) 0.0 WBC Differential . Differential Comment Auto diff final Sodium Potassium Chloride Carbon Dioxide Anion Gap BUN Creatinine Estimated GFR POC Glucose Random Glucose Calcium Magnesium Total Bilirubin AST ALT Alkaline Phosphatase Troponin I Total Protein Albumin Urine Color Urine Clarity Urine pH Ur Specific [place] Urine Protein Urine Glucose (UA) Urine Ketones Urine Occult Blood Urine Nitrate Urine Bilirubin Urine Urobilinogen Ur Leukocyte Esterase Urine WBC Ur Squamous Epith Cells Hyaline Casts Micro UA Comment Ur Microscopic Review Urine Culture Comments - Impressions ITS Impressions Head CT 04/29/18 16:55 CONCLUSION: 1. Negative CT Head non contrast. 2. No evidence of acute infarct, hemorrhage, mass or edema. . Cervical Spine MRI 04/30/18 00:00 CONCLUSION: 1. Degenerative changes are noted as above. Head MRI 04/30/18 00:00 CONCLUSION: 1. Negative MR Brain with and without contrast. Lumbar Spine MRI 04/30/18 00:00 CONCLUSION: 1. Degenerative changes and postsurgical changes are noted as above. Thoracic Spine MRI 04/30/18 00:00 CONCLUSION: 1. Mild degenerative changes. No evidence for canal or foraminal stenosis. Discharge Plan - Discharge Disposition Patient Disposition: 01 Discharge Home - Discharge Condition Condition: Stable - Discharge Order Discharge Orders: Discharge Order (Routine); Ordered 04/30/18 Ordered By: Rosemary Davis - Physicians Team Primary Care Provider: UNKNOWN, Attending Provider: Mary Sierra Other Providers: Jared Menard MD, PhD ; Alexys Lovell MD
[2018-04-30 13:30] VITALS: BP 143/84; RESP 16; TEMP 98.4; O2SAT 98
--- NOTE | 2018-04-30 14:52 | MB ---
cc: Jared Menard MD, PhD DATE: 04/30/2018 REASON FOR CONSULTATION: Ataxia. HISTORY OF PRESENT ILLNESS: Ms. Fink is a 63-year-old woman who has a long history of vertigo. The other day, she was running towards the bus and fell. She is not sure if she hit her head or not, but then after that has been unsteady. She fell a second time as well. She denies headache. No focal neurologic symptoms, but she does feel unsteady. PHYSICAL EXAMINATION: NEUROLOGIC: Higher cortical functions are normal. Cranial nerves intact. 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 Reflexes are 2+ and symmetric. She has no Babinski. DIAGNOSTIC DATA: MRI of the brain normal. MRI of the cervical spine shows spondylosis at several levels. There is some stenosis in the mid cervical area. The cord appears normal. MRI of the thoracic spine normal. MRI of lumbar spine reveals spondylosis at several levels. L1-L2 shows a diffuse disk bulge with left central protrusion, impinging on the left L2 nerve root, mild abutment of the left L1 nerve root. Moderate left and mild right foraminal narrowing at L2-L3. She has diffuse disk bulging abutting L2 exiting nerve roots and L3 nerve roots. L3-4 post laminectomy changes. No stenosis. L4-L5 disk bulges seen. L4 pars defect identified. Moderate stenosis is seen. There is severe facet arthropathy. L5-S1 shows a disk bulge at S1 with S1 nerve root compression. LABORATORY DATA: White count 5400, hemoglobin 12.9, hematocrit 37%, platelet count 221,000. Sodium is 137, potassium 3.4, chloride 104, BUN is 9, creatinine 0.9. IMPRESSION: Ataxia following a fall. Suspect this is probably more of a peripheral labyrinthine problem, probably an exacerbation of her vertigo. Recommend continuing meclizine. Regarding the cervical spondylosis with possible myelopathy, I agree with neurosurgery's evaluation and recommendations to follow up with Dr. Shin as an outpatient. At the present time, I do not find any definite myelopathic features. RECOMMENDATIONS: The patient is stable for discharge from the neurology standpoint. Please schedule followup with me in 2-3 weeks. I did recommend that she continue meclizine 25 mg t.i.d. as an outpatient. Jaerd Menard MD, PhD YASMINE/raciel , 02:30 PM , 02:35 PM
[2018-04-30] MEDS ORDERED: Montelukast 10 MG Tablet PO SCH (18:00)
== END 2018-04-30 16:31 | disposition home or self-care (01) ==
LOC: NEDA 12:06 → NEPE 12:06 → NEPGCP 21:28
PROVIDERS: ADMIT Family Medicine; ATTEND Family Medicine